=== PATIENT | male | born 1970 | race Caucasian/White ===

== ENCOUNTER 2022-03-20 10:34 | Outpatient (REF) | payer OTHER, SELFPAY ==
--- NOTE | ~2022-03-20 | FL_ITS ---
EXAMINATION: FL BARIUM SWALLOW CLINICAL INFORMATION: Dysphagia. COMPARISON: None. TECHNIQUE: Barium swallow examination is performed using fluoroscopic evaluation in addition to multiple fluoroscopic spot views. The patient is imaged both upright and prone and using both thick and thin sulfate along with effervescent granules. Barium tablet was also administered. Fluoroscopy time: 1 minute DAP: 12 Gy-cm2 Images: 37 FINDINGS: The swallowing mechanism is normal. No aspiration or penetration is seen. There is a small sliding-type hiatal hernia. There is gastroesophageal reflux. No mass or stricture is seen. FL/FL barium swallow IMPRESSION: Small sliding-type hiatal hernia and gastroesophageal reflux.
== END 2022-03-20 10:35 | disposition home or self-care (01) ==
LOC: HO.XRAY 10:34
PROVIDERS: PCP Internal Medicine; Visit Provider Otolaryngology
DX: Z13.89 Encounter for screening for other disorder (principal)
CPT/HCPCS: 74220

== ENCOUNTER 2022-03-27 08:15 | Outpatient (REF) | payer OTHER, SELFPAY ==
[2022-03-27 09:08] LABS: Hematocrit 44.3 % (42.0-52.0); Hemoglobin 15.8 g/dl (14.0-18.0); Mean Corpuscular HGB Conc 35.7 g/dl (31.0-36.0); Mean Corpuscular Hemoglobin 31.4 pg (27.0-33.0); Mean Corpuscular Volume 88.1 fL (80.0-98.0); Platelet Count 123 X10*3/uL (160-400); Red Blood Count 5.03 X10*6/uL (4.60-5.80); Red Cell Distribution Width 13.4 % (11.0-16.0); White Blood Count 5.4 X10*3/uL (4.8-10.8)
[2022-03-27 09:29] LABS: Alanine Aminotransferase 29 U/L (0-40); Albumin Level 4.4 g/dL (3.5-5.0); Alkaline Phosphatase 51 U/L (39-117); Anion Gap 11 (12-20); Aspartate Amino Transferase 22 U/L (5-37); Bilirubin Total 1.1 mg/dL (0.0-1.0); Blood Urea Nitrogen 11 mg/dL (9-16); C Reactive Protein 0.14 mg/dL (< or = 0.50); Calcium 9.3 mg/dL (8.4-10.2); Carbon Dioxide 30 mmol/L (22-29); Chloride 103 mmol/L (96-108); Cholesterol 108 mg/dL; Estimated Glomerular Filt Rate > 60; Gamma Glutamyl Transpeptidase 23 U/L (11-51); Glucose Random 99 mg/dL (60-115); HDL Cholesterol 32 mg/dL; LDL Cholesterol Calculated 51 mg/dl; Sodium 140 mmol/L (135-145); Total Protein 6.6 g/dL (6.5-8.0); Triglycerides 129 mg/dL
[2022-03-27 09:51] LABS: Free T4 (Free Thyroxine) 0.89 ng/dL (0.71-1.85); Insulin 8 uU/mL (2-29); Vitamin D 25-OH Total 43.3 ng/mL (>30)
[2022-03-28 12:42] LABS: Calcium (PTHI) 9.4 mg/dL (8.6-10.3); PTHI 18 pg/mL (16-77)
[2022-03-29 08:51] LABS: DHEA Sulfate 46 mcg/dL (32-279); Lutenizing Hormone <0.2 mIU/mL (1.5-9.3); Triiodothyronine T3 Free 3.3 pg/mL (2.3-4.2)
[2022-03-29 10:06] LABS: Thyroglobulin Antibodies <1 IU/mL (< or = 1); Thyroid Peroxidase Antibodies <1 IU/mL (<9)
[2022-04-02 13:32] LABS: Triiodothyronine T3 Reverse 10 ng/dL (8-25)
[2022-04-02 19:06] LABS: Homocysteine 11.2 umol/L (<11.4)
[2022-04-04 00:02] LABS: Dihydrotestosterone 20 ng/dL (12-65)
[2022-04-06 02:31] LABS: Estradiol Free 0.57 pg/mL; Estradiol, Ultrasensitive 26 pg/mL (< OR = 29)
[2022-04-12 09:06] LABS: Testosterone, Total 263 ng/dL (250-1100)
== END 2022-03-27 08:16 | disposition home or self-care (01) ==
LOC: HO.LAB 08:15
PROVIDERS: PCP Internal Medicine; Visit Provider Internal Medicine
DX: E03.9 Hypothyroidism, unspecified (principal); E29.1 Testicular hypofunction; E11.9 Type 2 diabetes mellitus without complications; D64.9 Anemia, unspecified
CPT/HCPCS: 36415; 80053; 80061; 82306; 82627; 82642; 82670; 82681; 82977; 83001; 83002; 83090; 83525; 83970; 84402; 84403; 84439; 84443; 84481; 84482; 85027; 86140; 86376; 86800

== ENCOUNTER 2022-03-28 11:36 | Outpatient (REF) | payer OTHER, SELFPAY | END 2022-03-28 11:37 | disposition home or self-care (01) | LOC: HO.10HDL 11:36 | PROVIDERS: Visit Provider Otolaryngology | DX: J30.89 Other allergic rhinitis (principal) | CPT/HCPCS: 36415; 82785; 86003 ==

== ENCOUNTER 2025-05-09 15:36 | Outpatient (AMB) | payer OTHER, SELFPAY ==
--- OUTSIDE RECORDS SUMMARY | 2024-11-10 10:00 | XMS_ITS | Encounter Summary ---
Author Name [facility] [place] [facility] [place] Organization [facility] [place] Address [address] [place] [address] Support Name Relationship Address Phone MÓNICAMessiNIDIA NICHOLS Next of Kin [address] [place] [address] NIDIA ALONZO Emergency Contact [address] [place] [address] Selected Encounter This section includes the information on record at [place] for the Encounter. Date/Time Encounter Type Encounter Description Reason Provider Source Nov 10, 2024 02:00 PM OFFICE O/P EST HI 40 MIN PRIMARY CARE/MEDICINE ICD-10-CM K58.9 Irritable bowel syndrome, unspecified DEBORAH GARLAND Encounter Template Text not used by [place] Assessments - Encounter Diagnoses This section includes the primary and secondary diagnoses documented for the Encounter. Date/Time Primary/Secondary Diagnosis Diagnosis Name Provider Source Nov 10, 2024 03:07 PM PRIMARY Irritable bowel syndrome, unspecified DEBORAH GARLAND Nov 10, 2024 03:07 PM SECONDARY Contact with and exposure to other hazardous substances DEBORAH GARLAND Nov 10, 2024 03:07 PM SECONDARY Essential (primary) hypertension DEBORAH GARLAND Plan of Treatment: Future Appointments (+ 6 months) and Future Tests (+/- 45 days) The Plan of Treatment section includes future care activities for the patient from all [place] treatmentfacilities. This section includes future appointments and future orders which are active, pending or scheduled. Future Appointments This section includes appointments that were scheduled to occur 6 months from the date of the Encounter, up to a maximum of 20 appointments. The data comes from all [place] treatment facilities. Appointment Date/Time Appointment Type Appointme nt Facility Name May 10, 2025 03:00 PM AMBULATORY - MEDICINE [facility] Vital Signs: All taken on the encounter date This section contains inpatient and outpatient Vital Signs collected on the date of the Encounter. Date/Time Temperature Pulse Blood Pressure Respiratory Rate SP02 Pain Height Weight Body Mass Index Source Nov 10, 2024 02:16 PM 98 71 156/89 18 98 71 273 38 [facility] IE Social History: Smoking Status (Most current) and Tobacco Use (All prior to encounter date) This section includes the most current, and the historical, smoking and tobacco- related health factors from the [place] facility where the Encounter took place. Current Smoking Status This section includes the most current smoking, or tobacco-related health factor, from the [place] facility where the Encounter took place. Date/Time Current Smoking Status Comment Facil ity Nov 10, 2024 02:00 PM NC-TOBACCO NEVER USED CIGARETTES [facility] Tobacco Use History This section includes a history of the smoking, or tobacco-related health factors, that were collected on or before the date of the Encounter. The data comes from the [place] facility where the Encounter took place. Date/Time Smoking Status/Tobacco Use Comment F acility Nov 10, 2024 02:00 PM NC-TOBACCO NEVER USED OTHER TYPE [facility] Encounter Notes: All associated encounter notes This section contains the clinical notes associated to the Encounter. Date/Time Encounter Note(s) Provider Source Nov 10, 2024 02:17 PM PREVENTIVE MEDICIN E NURSING NOTE: LOCAL TITLE: CLINICAL REMINDERS/NURSING STANDARD TITLE: PREVENTIVE MEDICINE NURSING NOTE DATE OF NOTE: NOV 10, 2024@14:17 ENTRY DATE: NOV 10, 2024@14:18:03 AUTHOR: ARASELI GALLEGOS EXP COSIGNER: URGENCY: STATUS: COMPLETED CLINICAL REMINDERS/NURSING Has ADDENDA Advance Directive Screen MH AD: Patient does not have a completed advance directive on file at any facility, [place] or outside. S/he is not interested in completing one at this time. The patient received education about Advance Directives and written notification of his/her rights . BMI>30/>24.99 High Risk: Patient declines to discuss weight management. Patient declined weight discussion. Discussed revisiting at a future visit. Influenza Immunization: The patient has received the seasonal influenza vaccine for the current season at another location. Documented: INFLUENZA, UNSPECIFIED FORMULATION Historical Date Administered: Jun 28, 2024 Outside Location: Outside Healthcare Provider Information Source: FROM OTHER REGISTRY COVID-19 Immunization: Moderna Patient received a prior dose of the Moderna COVID-19 Vaccine. Documented: COVID-19 (MODERNA), MRNA, LNP-S, PF, 100 MCG/0.5ML DOSE OR 50 MCG/0.25ML DOSE Historical Date Administered: Sep 29, 2020 Series: Series 1 Outside Location: Outside Healthcare Provider Information Source: FROM OTHER REGISTRY Patient received a prior dose of the Moderna COVID-19 Vaccine. Documented: COVID-19 (MODERNA), MRNA, LNP-S, PF, 100 MCG/0.5ML DOSE OR 50 MCG/0.25ML DOSE Historical Date Administered: Oct 29, 2020 Series: Series 2 Outside Location: Outside Healthcare Provider Information Source: FROM OTHER REGISTRY HIV Screening: Patient has been offered HIV testing and has declined. I have explained that HIV testing is recommended for all adults, even if all risk factors are absent. The patient was educated on the risk of delayed screening. Hepatitis C Testing: Patient declines HCV lab test. Reason: I am here to establish Tdap Immunization: The patient may have been vaccinated in the past but written documentation of vaccination is not available today. Patient instructed to obtain a written record of the prior vaccine and bring it to the next appointment. Herpes Zoster (Shingles) Vaccine: Prior Herpes Zoster vaccination Herpes zoster (shingles) vaccine given previously - written records available Zoster Recombinant (Shingrix): Documented: ZOSTER RECOMBINANT Historical Date Administered: May 02, 2024 Series: Series 1 Outside Location: Outside Healthcare Provider Information Source: FROM OTHER REGISTRY Documented: ZOSTER RECOMBINANT Historical Date Administered: Jul 17, 2024 Series: Series 2 Outside Location: Outside Healthcare Provider Information Source: FROM OTHER REGISTRY Sexual Orientation: The patient thinks of their sexual orientation as: Straight or Heterosexual RHS Screen: RHS Screen Environmental Check Upon inquiry, the individual reports that the environment is safe to proceed. Informed Consent to Screen and Document The individual consents to proceed with screening. The individual consents to documentation of responses. PRIMARY SCREEN: In the past 12 months, how often did a current or former intimate partner (e.g., boyfriend, girlfriend, , , sexual partner): 1. Scream or curse at you Never 2. Insult or talk down to you Never 3. Threaten you with harm Never 4. Physically hurt you Never 5. Force or pressure you to have sexual contact against your will, or when you were unable to say no Never The HITS tool (items 1-4 above) is [place] copyright protected by Clint Loomis MD, and the user has full rights to use it throughout the [place] system. PRIMARY SCREEN RESULT: The Primary Screen is NEGATIVE. The individual answered never to all forms of IPV above (i.e., answered never to all 5 items) The individual accepts education and/or resources: No EDUCATION: Other: Tdap Immunization: Td/Tdap given previously - written records available The patient has previously received the Tetanus, Diphtheria, Pertussis vaccine (Tdap). Documented: TDAP Historical Date Administered: Jul 15, 2019 Outside Location: Outside Healthcare Provider Information Source: FROM OTHER REGISTRY Hepatitis B Serology/Immunization: The patient declines to have HBV serology done. Reason: Here to establish The patient declines to receive the recommended dose of Hepatitis B vaccine. Immunization: HEP B, UNSPECIFIED FORMULATION Refusal Reason: PATIENT DECISION Patient refuses all immunization(s) in the HepB group Date Documented: 11/10/24 14:25 /judy GALLEGOS LPN LICENSED PRACTICAL NURSE Signed: 11/10/2024 15:10 11/10/2024 ADDENDUM STATUS: COMPLETED HTN Assess for Elevated BP>=140/90: The patient declines the recommended changes in medications to improve blood pressure control. Comment: my [facility]ie pcp monitors me The patient was counseled on the importance of diet and weight loss/ control in the regulation of blood pressure. The patient was counseled to reduce their weight to within 10 percent of their ideal body weight. The possible improvement in blood pressure control with even 5 to 10 pounds of weight loss was reviewed. The contribution of dietary sodium to elevated blood pressure was reviewed. The patient was counseled to have a goal sodium intake of 1500mg per day, with no more than 2300mg per day. The patient was counseled that a diet low in dietary saturated and trans fats is beneficial in lowering blood pressure. Lipid Screening: Patient was educated about cardiac risk factors related to cholesterol control, which includes, all elements of the Lipid Panel including HDL, LDL and Triglycerides. The declined testing at this time. /judy GALLEGOS LPN LICENSED PRACTICAL NURSE Signed: 11/10/2024 15:12 ARASELI GALLEGOS [facility] Nov 10, 2024 02:09 PM PHYSICIAN BELLA Venegas NOTE: LOCAL TITLE: PA NOTE STANDARD TITLE: PHYSICIAN RESPIRATORY CARE FACULTY NOTE DATE OF NOTE: NOV 10, 2024@14:09 ENTRY DATE: NOV 10, 2024@14:09:06 AUTHOR: DEBORAH GARLAND EXP COSIGNER: URGENCY: STATUS: COMPLETED S - 54 y/o M Allergy: NKAM MEDS: see below CC: new pt initial eval HPI: see Problem List PMH: neg CAD/AMI +HTN neg PVD or PAD neg COPD neg Asthma neg Hepatic Disorders neg Renal Disorders neg CVA/TIA neg Seizures neg Chronic Coagulopathy neg PUD, UGI Bleed neg Anemia, Excess Bleeding, Easy Bruising neg Blood Transfusions neg DM neg Thyroid Disorders +BPH +Depression (on meds) any Signif Infectious Diseases? No like TB/HIV/HEP B or C +Musculo-Skel Complaints (LBP, Knees, Shldr's) Neg Fx's or Dislocations never CA of any kind PSH: see Problem list ROS: denies fever, night sweats denies unintended changes WT/appetite denies new fatigue denies new chest pain denies new dyspnea/SOB denies new mental staus changes (or TIA Sx) denies ABD pain denies N/V/D denies chronic or bloody diarrhea denies (chronic) constipation denies LUTS denies melena, hematochezia denies new skin lesions or rashes FH: neg CAD neg DM +CRC (mother) neg Prostate CA Mil Hx: [employer] - current; but plans to retire from [employer] in JUN 09 MOS - 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; [employer] ([employer]: [place]), [employer], [place], [place] in [place] WIA - never TBI - no [place]: [employer] SH: O - coop A&Ox3 NAD W-N/H/D VS: Stable HEENT: Eyes - PERRL, anicteric OU Ears - EAC clear AU TM clear AU Oropharynx - no petechiae, uvula midline NECK: no adeno no bruits PUL: Resp full, reg, unlabored; CTA B/L COR: RRR, no M ABD: no distention no bruits no tenderness no mass/megaly RECTAL: defer EXT: no LLE or calf tenderness INTEG: NL texture/turgor NAILS: no clubbing no spooning LABS: not done yet A/P - 1) Hypertension - on Zestril 2) C/V Stable - never AL 3) Neuro Stable - never CVA/TIA 4) Hypercholesterolemia - on Lipitor 5) Normoglycemic 6) Coagulopathy - No 7) BPH - on Flomax 8) PTSD/Depression - already has Private Psychologist - Gets Meds via Private Sector 9) Irriatble Bowel Syndrome - on Colestipol - still sees Private GI as of NOV 09 MEDS: Reconciled - has list RTC MAY 09 - sooner prn Homelessness/Food Insecurity Screen: In the past 2 months, have you been living in stable housing that you own, rent, or stay in as part of a household? Yes - Living in stable housing. Are you worried or concerned that in the next 2 months you may NOT have stable housing that you own, rent, or stay in as part of a household? No - Not worried about housing near future The reports the following: Within the past 12 months, you worried whether your food would run out before you got money to buy more. Never true Within the past 12 months, the food you bought just didn't last and you didn't have money to get more. Never true Depression Screening: positive MST Screening: Patient denies experiencing sexual trauma (MST). Preferred Language: What is your, or your caregiver's preferred language for healthcare? Preferred Language: Syriac Tobacco Use Screening: The patient has never smoked cigarettes. The patient has never used other types of tobacco. Alcohol Use Screen (AUDIT-C): Alcohol Screen: SCREEN FOR ALCOHOL (AUDIT-C) An alcohol screening test (AUDIT-C) was negative (score=0). 1. How often did you have a drink containing alcohol in the past year? Consider a drink to be a 12 ounce can or bottle of regular beer, 8 ounces of malt liquor, a 5 ounce glass of table wine, or a 1.5 ounce shot of liquor (like scotch, gin, or vodka). Never 2. How many drinks containing alcohol did you have on a typical day when you were drinking in the past year? Response not required due to responses to other questions. 3. How often did you have six or more drinks on one occasion in the past year? Response not required due to responses to other questions. 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 Printed information was offered and provided if desired. [place] related exposures: [place]/caregiver was made aware of educational resources that includes information on the Registry Program, presumptive conditions and how to file a claim. Printed information was offered and provided if desired. Other airborne hazards, including burn pits: /caregiver was made aware of educational resources and printed information was offered and provided if desired. /caregiver has health or medical concerns related to their concern of environmental exposure. Question: na Benefits/Claims Questions [place]/caregiver was informed of local point of contact. Contact information for local resources: Benefits/Claim for Disability Compensation Questions:National VBA [place] Healthcare Enrollment: [facility] Eligibility direct dialed at [phone] Registry: [facility] Health Coordinator ext [phone] The following connections were provided to the [place]/caregiver: Toxic Exposure Screening (MAO) navigator Avg Risk Colorectal Cancer Screen: AVERAGE RISK colorectal cancer screening is due based on information available to this clinical reminder Prior/outside colonoscopy results: polyps' a[wyatt momth Date: September, ? Exact date is unknown Average risk screening reminder set 1 year from NOV 10, 2024. Comment: end 2024 PTSD Screening: PC-PTSD-5 A PTSD screening test (PC-PTSD-5) was positive (score=5). IN THE PAST MONTH, have you ever had any experience that was so frightening, horrible or traumatic. For example: A serious accident or fire a physical or sexual assault or abuse An earthquake or flood A war Seeing someone be killed or seriously injured Having a loved one through homicide or suicide 1. Have you ever experienced this kind of event? YES 2. Had nightmares about the event(s) or thought about the event(s) when you did not want to? YES 3. Tried hard not to think about the event(s) or went out of your way to avoid situations that reminded you of the event(s)? YES 4. Been constantly on guard, watchful, or easily startled? YES 5. [place] numb or detached from people, activities, or your surroundings? YES 6. [place] guilty or unable to stop blaming yourself or others for the event(s) or any problems the event(s) may have caused? YES TBI Screening: The [place] was not deployed in support of post-05/26 operations. Screen for Embedded Fragments: SCREEN FOR EMBEDDED FRAGMENTS The patient reports no embedded fragments. Medication Reconciliation: Outpatient: Has the patient been taking medications as documented in the EMLR? YES: The patient has been taking medications as documented in the EMLR. Essential Medication List for Review used to complete this medication reconciliation. INCLUDED IN THIS LIST: Alphabetical list of active outpatient prescriptions dispensed from this VA (local) and dispensed from another VA or DoD facility (remote) as well as inpatient orders (local, pending and active), local clinic medications, locally documented non-VA medications, and local prescriptions that have or been discontinued in the past 90 days. - All changes in medications, including all non-VA/Herbal/OTC medications were entered into CPRS. Changes: nt - If there were any medications the patient should no longer take, they were discontinued. - The patient/caregiver was instructed to update this list, discard old lists, and take this list to the next appointment, whether with a VA or non-VA provider. Follow-Up Pos PTSD/Depression: I have reviewed the results of the Mental Health screens and have evaluated the patient. Based on the evaluation, the following disposition plan will be implemented: Patient to be evaluated by Mental Health Routine/Non-emergent Mental Health Evaluation needed. Comment: already ses somebody outside va - has meds /es/ DEBORAH GARLAND PA-C STAFF PHYSICIAN RESPIRATORY CARE FACULTY Signed: 11/10/2024 15:07 DEBORAH GARLAND
--- OUTSIDE RECORDS SUMMARY | 2024-11-11 06:22 | XMS_ITS | Encounter Summary ---
Author Name [facility] [place] Organization [place] Address [address] [place] [address] Support Name Relationship Address Phone NIDIA ALONZO Next of Kin [address] [place] [address] NIDIA ALONZO Emergency Contact [address] [place] [address] Selected Encounter This section includes the information on record at [place] for the Encounter. Date/Time Encounter Type Encounter Description Reason Provider Source Nov 11, 2024 10:22 AM CASE MANAGEMENT ADMIN PAT ACTIVTIES (MASNONCT) ICD-10-CM Z71.89 Other specified counseling SOURAV TUBBS [facility] Encounter Template Text not used by [place] Assessments - Encounter Diagnoses This section includes the primary and secondary diagnoses documented for the Encounter. Date/Time Primary/Secondary Diagnosis Diagnosis Name Provider Source Nov 11, 2024 10:34 AM PRIMARY Other specified counseling SOURAV TUBBS [facility] Plan of Treatment: Future Appointments (+ 6 months) and Future Tests (+/- 45 days) The Plan of Treatment section includes future care activities for the patient from all [place] treatmentfacilities. This section includes future appointments and future orders which are active, pending or scheduled. Future Appointments This section includes appointments that were scheduled to occur 6 months from the date of the Encounter, up to a maximum of 20 appointments. The data comes from all [place] treatment facilities. Appointment Date/Time Appointment Type Appointme nt Facility Name May 10, 2025 03:00 PM AMBULATORY - MEDICINE [facility] Encounter Notes: All associated encounter notes This section contains the clinical notes associated to the Encounter. Date/Time Encounter Note(s) Provider Source Nov 11, 2024 10:22 AM FLOOR LAYER HELPER NOTE: LOCAL TITLE: POST 911 CASE MANAGEMENT SCREENING STANDARD TITLE: FLOOR LAYER HELPER NOTE DATE OF NOTE: NOV 11, 2024@10:22 ENTRY DATE: NOV 11, 2024@10:23 AUTHOR: SOURAV TUBBS COSIGNER: AMINA KING URGENCY: STATUS: COMPLETED Post 05/26 Case Management Screen The [place] was contacted by telephone. demographic information has been verified as correct. Preferred Method(s) of Communication: Email Mail Telephone Text Medical and/or Mental Health Crisis: The is NOT currently experiencing a medical and/or mental health crisis. Emergency Room Visits/Hospital Admissions: The [place] has NOT had three or more emergency room visits or hospital admissions in the past six months. Chronic Health Conditions: The has NOT been diagnosed with any chronic health condition in the last 12 months. Concerns/Questions/Needs: The [place] has NO barriers to care concerns, questions or needs at this time. The [place] HAS concerns, questions or needs regarding benefits. COMPENSATION/[place] STATE BENFITS The HAS concerns, questions or needs regarding managing care. WHOLE HEALTH EDUCATION The [place] has NO social concerns, questions or needs at this time. Case Management Screen Outcome: The HAS identified needs as described above. The Veterans identified needs WERE resolved during this encounter. Time spent with patient: 31-45 minutes WHOLE HEALTH WHOLE HEALTH EDUCATION Whole Health Education was provided. Called as part of the TCM screening measure. A comprehensive chart review was conducted prior to this call. 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 just started utilizing the [facility] and has no complaints at this time. [place] denies needing or wanting MH services during our conversation when offered. [place] denied having a medical or mental health crisis during our conversation when asked. We discussed the three different components that make up the VA and spoke about VA disability claims. We discussed [place] state benefits that he is eligible for and I explained the function and the dynamics of the [facility] team and also educated him on the whole health initiative. I also sent him an email with my contact information on it and the welcome home letter with the teams information on it for any future questions or concerns. /jun/ SOURAV TUBBS Transitional Patient Advocate Signed: 11/11/2024 10:36 /es/ LOLA Whitney LICENSED CLINICAL ESL PROFESSOR Cosigned: 11/11/2024 10:51 SOURAV TUBBS [place] [facility]
--- OUTSIDE RECORDS SUMMARY | 2025-05-04 11:00 | XMS_ITS | Encounter Summary ---
Author Organization [facility] Address [address] [place] [phone] Phone Care Team Providers Care Medical Claims Manager Name Role Phone Pranay Grigsby MD Primary Care Provider [phone]- [phone] Reason for Visit * Reason Comments Post-op Shoulder Pain Right Encounter Details Date Type Department Care Team (Late st Contact Info) Description 05/04/2025 11:00 AM EDT Office [place] [facility] [place] of Orthopaedic Surgery [address] [address] Angel Alberts MD [address] [place] [id number] [email or web address] S/P rotator cuff repair (Primary Dx); Traumatic complete tear of right rotator cuff, subsequent encounter Social History Tobacco Use Types Packs/Day Years Used Date Smoking Tobacco: Never Smokeless Tobacco: Never Tobacco Cessation:Counseling Given: Not Answered Alcohol Use Standard Drinks/Week Comments Not Asked 0 (1 standard drink = 0.6 oz pur e alcohol) once a month Education Answer Date Recorded Are you interested in more education? Not on nicanor e 01/10/2023 Are you concerned about learning? Not on file 01/10/2023 No 01/10/2023 No 01/10/2023 Digital Access Answer Date Recorded No 02/08/2023 No 02/08/2023 Reliable internet access at home? Not on file 02/08/2023 Device with a working camera? Not on file Intimate Partner Violence Answer Date R ecorded Are you denied basic needs s uch as food, clothing, or medical care? No 04/26/2025 In the past 12 months have y ou been in a relationship with a person who hurts, threatens, or tries to control you? No 04/26/2025 Are you denied basic needs s uch as food, clothing, or medical care? No 04/26/2025 In the past 12 months have y ou been in a relationship with a person who hurts, threatens, or tries to control you? No 04/26/2025 Sex and Gender Information Value Date Recorded Sex Assigned at Male 06/02/2020 9:58 AM EDT Legal Sex Male 10:32 AM EDT Gender Identity Male 06/02/2020 9:58 AM EDT Sexual Orientation Straight 06/02/2020 9: 58 AM EDT documented as of this encounter Last Filed Vital Signs Vital Sign Reading Time Taken Comments Blood Pressure - - Pulse - - Temperature - - Respiratory Rate - - Oxygen Saturation - - Inhaled Oxygen Concentration - - Weight 117.9 kg (260 lb) 05/04/2025 10:57 AM EDT Height 180.3 cm (5' 11 ) 05/04/2025 10:57 AM EDT Body Mass Index 36.26 05/04/2025 10:57 AM EDT documented in this encounter Progress Notes * Angel Alberts MD - 05/04/2025 11:00 AM EDT Images from the original note were not included. Patient Id: Azeem Crump is a 54 y.o. male [id number] Encounter Date: 05/04/2025 No chief complaint on file. 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 Patient is now 8 days postop. Patient reports that his pain is under control at this time. Taking his aspirin with no Pain or shortness of breath as well as Tylenol. Patient does report having some numbness in his hand and really in the 3 ulnar digits. 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 Patient was seen by George Fox (TIFFANIE) on 11-26-2024. At that time he had been doing physical therapy. Operative versus nonoperative treatment was discussed at that time patient chose continued physical therapy to achieve full range of motion. Patient reports that this was having him have 7 out of 7 nights awakening now 0 out of 7 nights awakening. Patient at this time really has poor range of motion and significant weakness and pain. Physical Exam: The patient's affect is pleasant and cooperative, the skin is in good condition, Cranial Nerves II-XII are grossly intact, normal respiratory rate, normal recipricol gait, general appearance is excellent. C-spine range of motion is within normal limits, with a negative Sperlings Test. 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 Plan: Patient will continue being in the sling at all times even at night. Is allowed to use his hand hiswrist and his elbow. If he starts having some numbness and tingling in these 3 digits he will come out of the sling and extend his elbow so the elbow is not flexes much. 2. Patient will start physical therapy which has already been ordered which will be passive external rotation 0 to 30 degrees, passive forward elevation 0 to 90 degrees, passive abduction 0 to 90 degrees. No strengthening no internal rotation 3. Follow-up with [facility] in 5 weeks for reevaluation. At that time the bump will come out and he will start active assisted range of motion all planes. We are going very slow because it was a massive tear. 4. Patient continue aspirin and Tylenol. The aspirin is really to prevent fatal pulmonary embolism.He will take this until 30 days postop then can stop Patient Education: The patient and I reviewed the diagnosis, differential diagnosis, and options for further diagnosisand treatment. We discussed alternatives of treatment, advantages and disadvantages of different treatment methods, and relative risks and benefits. I have specifically asked the patient if they have any further questions or concerns to be addressed during today's visit - all concerns have been satisfactorily addressed. The patient was encouragedto call the office with any questions or concerns. If the patient's condition worsens or does not improve as expected, then the patient was instructed to contact our office promptly. The patient demonstrated understanding and was appreciative. The patient???s agenda was elicited and addressed during the visit. All questions were satisfactorily answered and he was in agreement with this plan. Review of systems reviewed as documented in patient's chart. No Known Allergies Past Medical History: Diagnosis Date Gastroesophageal reflux disease Hyperlipidemia Hypertensive disorder Irritable bowel syndrome Sleep apnea cpap Past Surgical History: Procedure Laterality Date KNEE SURGERY Right NASAL RECONSTRUCTION RIGHT ARTHROSCOPIC REPAIR ROTATOR CUFF SHOULDER, augmented with autologous bursa Right 04/26/2025 Performed by Angel Alberts MD at [facility] OR RIGHT DECOMPRESSION SUBACROMIAL SHOULDER Right 04/26/2025 Performed by Angel Alberts MD at [facility] OR No family history on file. Social History Occupational History Not on file Tobacco Use Smoking status: Never Smokeless tobacco: Never Vaping Use Vaping status: never used Substance and Sexual Activity Alcohol use: Not on file Comment: once a month Drug use: Not on file Sexual activity: Not on file Angel Alberts MD documented in this encounter Plan of Treatment Upcoming Encounters Date Type Department Care Team (Late st Contact Info) Description 06/02/2025 9:45 AM EDT Office Visit [facility] [place] of Orthopaedic Surgery - [facility] [address] [place] [address] Angel Alberts MD [address] [place] [phone] [email or web address] documented as of this encounter Visit Diagnoses Diagnosis S/P rotator cuff repair- Primary Traumatic complete tear of right rotator cuff, subsequent encounter documented in this encounter Care Teams Medical Claims Manager Relationship Specialty Start Date End Date Pranay Grigsby MD [facility] [place] [address] PCP - General Internal Medicine 11/17/24 documented as of this encounter Additional Source Comments The information contained in this document represents components of the legal health record. It is not the complete legal health record.[facility]
--- OUTSIDE RECORDS SUMMARY | 2025-05-09 17:37 | XMS_ITS | Encounter Summary ---
Author Organization [facility] Address [address] [place] [address] [place] [phone] Phone Care Team Providers Care Drier And Grinder Tender Name Role Phone Jose David Schwarz MD Primary Care Provider + Pranay Grigsby MD Primary Care Provider [phone]- [phone] Encounter Details Date Type Department Care Team (Late st Contact Info) Description 07/16/2019 Procedure Pass [facility] General Imaging [address] [place] [address] Social History Tobacco Use Types Packs/Day Years Used Date Smoking Tobacco: Never Assessed Sex and Gender Information Value Date Recorded Sex Assigned at Male 06/02/2020 9:58 AM EDT Legal Sex Male 10:32 AM EDT Gender Identity Male 06/02/2020 9:58 AM EDT Sexual Orientation Straight 06/02/2020 9: 58 AM EDT documented as of this encounter Plan of Treatment Upcoming Encounters Date Type Department Care Team (Late st Contact Info) Description 06/02/2025 9:45 AM EDT Office Visit [facility] Department of Orthopaedic Surgery - [address] [address] Angel Alberts MD [address] [place] [phone] [email or web address] documented as of this encounter Visit Diagnoses Not on filedocumented in this encounter Care Teams Drier And Grinder Tender Relationship Specialty Start Date End Date Jose David Schwarz MD [address] [place] [phone] PCP - General Internal Medicine 07/16/19 11/16/24 Pranay Grigsby MD [address] [place] [id number] PCP - General Internal Medicine 11/17/24 documented as of this encounter Additional Source Comments The information contained in this document represents components of the legal health record. It is not the complete legal health record.[facility]
--- OUTSIDE RECORDS SUMMARY | 2025-05-09 17:37 | XMS_ITS | Encounter Summary ---
Author Organization [facility] Address [address] [place] [address] [place] [address] Phone Care Team Providers Care Finance And Administration Manager Name Role Phone Jose David Schwarz MD Primary Care Provider + Pranay Grigsby MD Primary Care Provider [phone]- [phone] Encounter Details Date Type Department Care Team (Late st Contact Info) Description 07/16/2019 Procedure Pass [facility] General Imaging [address] [place] [address] Social History Tobacco Use Types Packs/Day Years [...] Description 06/02/2025 9:45 AM EDT Office [place] [facility] [place]edic Surgery - [address] [address] Angel Alberts MD [address] [place] [phone] [email or web address] documented as of this encounter Visit Diagnoses Not on filedocumented in this encounter Care Teams Finance And Administration Manager Relationship Specialty Start Date End Date Jose David Schwarz MD [address] [place] [phone] PCP - General Internal Medicine 07/16/19 11/16/24 Pranay Grigsby MD [address] [place] [phone] PCP - General Internal Medicine 11/17/24 documented as of this encounter Additional Source Comments The information contained in this document represents components of the legal health record. It is not the complete legal health record.[facility]
--- OUTSIDE RECORDS SUMMARY | 2025-05-09 17:37 | XMS_ITS | Continuity of Care Document ---
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 CONFIRMATIO N TO FOLLOW: Possible presence of HIV-1antibo dies, HIV-2 antibodies and/or HIV-1 p24 antigen. Specimen will reflex to the confirmatio n testing that fulfills the Center for Disease Control and Prevention' s HIV diagnostic algorithm. Refer to [facility] Lab Guide for additional information : [email or web address] x Testing performed by Tim null [facility] Miscellan eous Sendouts Repository Sample Received (11/29/23 11:17 AM) 11/28 N [facility] Vital Signs Combined list of inpatient and outpatient Vital Signs from Department of Defense and Veterans Affairs, ranging from 12 months to all on record, depending upon the facility. Vital Sign Value Date Comments Source SYSTOLIC BLOOD PRESSURE 156 11/10/2024 14:16:05 [place] DIASTOLIC BLOOD PRESSURE 89 11/10/2024 14:16:05 [place] PULSE OXIMETRY 98 11/10/2024 14:16:05 [place] WEIGHT 273 11/10/2024 14:16:05 [place] BMI 38 kg/m2 11/10/2024 14:16:05 [place] HEIGHT 71 11/10/2024 14:16:05 [place] TEMPERATURE 98 11/10/2024 14:16:05 [place] PULSE 71 11/10/2024 14:16:05 [place] RESPIRATION 18 11/10/2024 14:16:05 [place] Encounters Combined list of: 1) Encounters from Department of Veterans Affairs facilities going backup to the last 18 months, not all VA inpatient encounters are included; 2) Encounters from the Department of Defense facilities going backup to 280 months. Location Location Details Encounter Type Encounter Number Reason For Visit Attending Provider ADM Date DC Date Status Disposition Source [facility] [place] [place] [address](AFN G 104 Med Sq-FM) OUTPATIENT [id number] Notes Entered by: PATSY BAIG 02 Apr 2017 1633 ------- ------- ------- ------- -- PATSY FOFANA 04/02 Released w/o Limitations [facility] [place] [address](A FNG 104 Med Sq-FM) [place] [address](AFN G 104 Med Sq-FM) OUTPATIENT [id number] Notes Entered by: SCOTT HARKINS 04 May 2018 1416 ------- ------- ------- ------- -- MARCIE GRIGBSY 05/04 Released w/o Limitations [facility] [place] [address](A FNG 104 Med Sq-FM) [facility] OUTPATIENT [id number] Theater Provider 10/03 [facility]ased w[facility] Limitations [facility] OUT[facility] [id number] Theater Provider 10/29 [facility]ased w/[facility] Limitations [facility] OUTPATIENT [id number] Theater Provider 11/06 Released w/[facility] Limitations [facility] OUTPATIENT [id number] Theater Provider 11/16 Released w/o Limitations [facility] OUTPATIENT [id number] Theater Provider 12/05 [facility] OUTPATIENT [id number] Theater Provider 12/14 Released w/o Limitations [facility] [place] [facility] [address](AFN G 104 Med Sq-FM) OUTPATIENT [id number] Notes Entered by: JONAS BERRIOS 22 Dec 2018 1240 ------- ------- ------- ------- -- Pre-Dep loymPATSY Renteria 12/22 [facility] Limitations [facility] [place] [place] [address](A FNG 104 Med Sq-FM) [facility] OUTPATIENT [id number] Theater Provider 12/23 Released w/o Limitations [facility] OUTPATIENT [id number] Theater Provider 03/12 Released w/o Limitations [facility] OUTPATIENT [id number] Theater Provider 03/16 Released w/o Limitations [facility] [place] [address](AFN G 104 Med Sq-FM) OUTPATIENT [id number] Notes Entered by: PATSY BAIG 01 Apr 2019 1355 ------- ------- ------- ------- -- PATSY FOFANA 04/01 Released w/o Limitations [facility] [place] [address](A FNG 104 Med Sq-FM) [facility] [place] [address](AFN G 104 Med Sq-FM) OUTPATIENT [id number] Notes Entered by: PATSY BAIG 25 Sep 2019 1059 ------- ------- ------- ------- -- PATSY Lemons 09/25 Released with Work/Duty Limitations [facility] [place] [place] [address](A FNG 104 Med Sq-FM) [facility] [place] [address](AFN G 104 Med Sq-FM) OUTPATIENT [id number] Notes Entered by: PATSY BAIG 28 Sep 2019 0947 ------- ------- ------- ------- -- PATSY FOFANA 09/28 Released w/o Limitations [facility] [place] [address](A FNG 104 Med Sq-FM) [facility] [place] [address](AFN G 104 Med Sq-FM) [facility] CONSULT [id number] Notes Entered by: PATSY BAIG 11 Mar 2020 1049 ------- ------- ------- ------- -- PATSY Lemons 03/11 [facility] [place] [address](A FNG 104 Med Sq-FM) [facility], [facility](AFN G 104 Med Sq-FM) OUTPATIENT [id number] Notes Entered by: PATSY BAIG 31 Mar 2020 1410 ------- ------- ------- ------- -- follow up PATSY BAIG 03/31 Released w/o Limitations [facility] [place] [address](A FNG 104 Med Sq-FM) [facility] [place] [address](AFN G 104 Med Sq-FM) OUTPATIENT [id number] Notes Entered by: PATSY BAIG 11 Apr 2020 1634 ------- ------- ------- ------- -- HA4 PATSY BAIG 04/11 [facility] Limitations [facility] [place] [place] [address](A FNG 104 Med Sq-FM) [facility], [facility](AFN G 104 Med Sq-FM) OUTPATIENT [id number] Notes Entered by: PATSY BAIG 15 Nov 2020 1533 ------- ------- ------- ------- -- PATSY FOFANA NOONE 11/15 Released w/o Limitations [facility] [place] [address](A FNG 104 Med Sq-FM) [facility] [place] [address](AFN G 104 Med Sq-FM) OUTPATIENT [id number] Notes Entered by: PATSY BAIG 03 Apr 2022 1227 ------- ------- ------- ------- -- Med review SAFIA PATSY OTOOLE 04/03 Released w/o Limitations [facility] [place] [address](A FNG 104 Med Sq-FM) [facility] [place] [address](AFN G 104 Med Sq-FM) OUTPATIENT [id number] Notes Entered by: PATSY BAIG 03 Apr 2022 1257 ------- ------- ------- ------- -- PATSY FOFANA 04/03 Released w/o Limitations [facility] [place] [address](A FNG 104 Med Sq-FM) [facility] Outpatient Encounter [id number] 05/02 [facility]counter [id number] 06/28 [facility] Outpatient Encounter [id number] 07/17 [facility] Outpatient Encounter [id number] 08/02 [facility] Out[facility]counter [id number] 09/20 [facility] Encounter [id number]/[id number] [facility] [id number] Diagnos is: ICD-10- CM 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 Marsh 09/21 [facility] Out[facility] Encounter [id number] 09/30 [facility] Encounter [id number] 10/13 [facility] En[facility] [id number] 10/13 [facility] [id number] MDG Care Not Rendered [id number] 10/20 Discharge Disposition: Home or Self Care 8203R-1 04 MDG [facility] Out[facility] Encounter [id number] 11/10 [facility] O/P EST HI 40 MIN [id number] Diagnos is: ICD-10- CM K58.9 Irritab le bowel syndrom e, unspeci fied CR [place] 11/10 [place] [facility] [id number] Diagnos is: ICD-10- CM 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 Marsh 11/11 [facility] [id number] MDG Care Not Rendered [id number] 11/13 Discharge Disposition: Home or Self Care 8203R-1 04 MDG [id number]-104 MDG Care Not Rendered [id number] 11/30 Discharge Disposition: Home or Self Care 8203R-1 04 MDG [id number]-104 MDG Care Not Rendered [id number] 01/28 Discharge Disposition: Home or Self Care 8203R-1 04 MDG 8203R-104 MDG Care Not Rendered [id number] 02/01 Discharge Disposition: Home or Self Care 8203R-1 04 MDG Procedures Combined list of: 1) Procedures from Department of Veterans Affairs facilities going back up to thelast 18 months, not all [place] non-surgical procedures are included; 2) All procedures from the [facility] of [facility] facilities. Procedure Procedure Type Code Date Perfomer Comments Sourc e INJECTION, PROMETHAZINE HCL, UP TO 50 MG 08/06/2005 [facility] No data available for this section Ambulato ry Pharmacy Social History Combined list of available smoking, tobacco, and other social history from [facility] of Defense and [facility] facilities. Social History Type Response Date Comment Sourc e Tobacco smoking status NHIS MS-TOBACCO NEVER USED CIGARETTES 11/10/2024 [place] History of tobacco use MS-TOBACCO NEVER USED OTHER TYPE 11/10/2024 [place] This section is an empty social history section. [facility] Assessment and Plan Combined list of future care activities from Department of Defense and Veterans Affairs facilities (e.g., assessment and plan notes, appointments, orders, and referrals). Additional future care activities may be listed in the Plan of Care section. Result Assessment and Plan Date Source Assessment and Plan No data available for this section 05/09/2025 [facility] Plan of Care List of future care activities from Department of Veterans Affairs facilities. Additional future care activities may be listed in the Assessment and Plan section. Date/Time Care Activity Care Activity Detail Facili ty 05/10/2025 AMBULATORY - MEDICINE AMBULATORY - MEDICI [facility] Functional Status Combined list of recent functional and cognitive assessments recorded at Department of Defense and Veterans Affairs (VA).VA Functional Mower Measurement (FIM) Scale: 1 = Total Assistance (Subject = 0% +), 2 = Maximal Assistance (Subject = 25% +), 3 = Moderate Assistance (Subject = 50% +), 4 = Minimal Assistance (Subject = 75% +), 5 = Supervision, 6 = Modified Mower (Device), 7 = Complete Mower (Timely, Safely). Assessment Date/Time Source Assessment Type Assessment Skill Assessment Score Assessment Details No data available for this section
--- OUTSIDE RECORDS SUMMARY | 2025-05-09 17:37 | XMS_ITS | Encounter Summary ---
Author Organization [facility] Address [address] [place] [address] [place] [phone] Phone Care Team Providers Care Wood Caulker Name Role Phone Jose David Schwarz MD Primary Care Provider + Pranay Grigsby MD Primary Care Provider [phone]- [phone] Encounter Details Date Type Department Care Team (Late st Contact Info) Description 07/16/2019 Procedure Pass [facility] [address] [place] [address] Social History Tobacco Use Types Packs/Day Years [...] Description 06/02/2025 9:45 AM EDT Office Visit [facility] Department of Orthopaedic Surgery - [address] [address] Angel Alberts MD [address] [place] [id number] [email or web address] documented as of this encounter Visit Diagnoses Not on filedocumented in this encounter Care Teams Wood Caulker Relationship Specialty Start Date End Date Jose David Schwarz MD [address] [place] [address] PCP - General Internal Medicine 07/16/19 11/16/24 Pranay Grigsby MD [address] [place] [address] PCP - General Internal Medicine 11/17/24 documented as of this encounter Additional Source Comments The information contained in this document represents components of the legal health record. It is not the complete legal health record.[facility]
--- OUTSIDE RECORDS SUMMARY | 2025-05-09 17:37 | XMS_ITS | Encounter Summary ---
Author Organization [facility] Address [address] [facility] [address] [place] [phone] Phone Care Team Providers Care Nutrition Technician Name Role Phone Pranay Grigsby MD Primary Care Provider [phone]- [phone] Encounter Details Date Type Department Care Team (Late st Contact Info) Description 04/26/2025 Procedure Pass [facility] [place] [place] [facility] [address] [place] [address] Social History Tobacco Use Types Packs/Day Years Used Date Smoking Tobacco: Never Smokeless Tobacco: Never Alcohol Use Standard Drinks/Week Comments Not Asked [...] Description 06/02/2025 9:45 AM EDT Office Visit [facility] [place] [place] Department of Orthopaedic Surgery [address] [address] Angel Alberts MD [address] [place] [id number] [email or web address] documented as of this encounter Visit Diagnoses Not on filedocumented in this encounter Care Teams Nutrition Technician Relationship Specialty Start Date End Date Pranay Grigsby MD [address] [place] [address] PCP - General Internal Medicine 11/17/24 documented as of this encounter Additional Source Comments The information contained in this document represents components of the legal health record. It is not the complete legal health record.[facility]
--- OUTSIDE RECORDS SUMMARY | 2025-05-09 17:37 | XMS_ITS | Clinical Summary ---
Author Organization [facility] Address [address] [place] [phone] Phone Care Team Providers Care Physical Sciences Instructor Name Role Phone Pranay Grigsby MD Primary Care Provider [phone] Allergies No known active allergies Medications sertraline (ZOLOFT) 25 MG tablet Take 25 mg by mouth daily. Active tamsulosin (FLOMAX) 0.4 mg Cap Take 0.4 mg by mouth daily. Active atorvastatin (LIPITOR) 10 MG tablet Take 1 tablet by mouth daily. 08/02/20 24 Active lisinopril (PRINIVIL,ZEST RIL) 20 MG tablet Take 1 tablet by mouth daily. 08/17/20 23 Active zolpidem (AMBIEN) 5 MG tablet Take 5 mg by mouth. 11/02/19 25 Active LORazepam (ATIVAN) 0.5 MG tablet Take 1 tablet by mouth 3 (three) times a day as needed. 07/09/20 23 Active colestipol (COLESTID) 1 gram tablet TAKE 2 TABLETS BY MOUTH 2 TIMES DAILY (WITH MEALS) FOR 360 DAYS. 08/26/20 24 Active cyclobenzaprin e (FLEXERIL) 5 MG tablet Take 1 tablet by mouth 3 (three) times a day as needed. Active DULoxetine (CYMBALTA) 30 MG capsule Take 1 capsule by mouth daily. 11/10/19 25 Active gabapentin (NEURONTIN) 300 MG capsule Take 300 mg by mouth. 11/01/19 25 Active metoprolol succinate (TOPROL-XL) 25 MG 24 hr tablet Take 25 mg by mouth daily. Active aspirin 325 MG tablet Take 1 tablet (325 mg total) by mouth 2 (two) times a day. 60 tablet 04/26/20 25 Active oxyCODONE 5 MG immediate release tablet Take 1 tablet (5 mg total) by mouth every 4 (four) hours as needed for pain (specific location in comments). Partial fill ok 12 tablet 04/26/20 25 Active acetaminophen (TYLENOL) 500 mg capsule Take 2 capsules (1,000 mg total) by mouth every 6 (six) hours as needed for fever. 60 capsule 04/26/20 25 Active ibuprofen (ADVIL,MOTRIN) 200 MG tablet Take 200 mg by mouth every 6 (six) hours as needed for pain (specific location in comments). 025 Discontinued(St op Taking at Discharge) acetaminophen (TYLENOL) 500 MG tablet Take 1 tablet (500 mg total) by mouth every 6 (six) hours as needed for pain (specific location in comments). 60 tablet 04/26/20 25 025 Discontinued oxyCODONE 5 MG immediate release tablet Take 1-2 tablets (5-10 mg total) by mouth every 4 (four) hours as needed for pain (specific location in comments). Partial fill ok 12 tablet 04/26/20 25 025 Discontinued aspirin 325 MG EC tablet Take 1 tablet (325 mg total) by mouth 2 (two) times a day. 60 tablet 04/26/20 25 025 Discontinued Active Problems Problem Noted Date Diagnosed Date Primary hypertension 04/18/2025 Sleep apnea 04/18/2025 Encounters Date Type Department Care Team Description 05/04/2025 11:00 AM EDT Office Visit [facility] Department of Orthopaedic Surgery - [address] [address] Angel Alberts MD S/P rotator cuff repair (Primary Dx); Traumatic complete tear of right rotator cuff, subsequent encounter 04/26/2025 7:30 AM EDT - 04/26/2025 10:00 AM EDT Surgery [facility] [address] [place] [address] Angel Alberts MD RIGHT ARTHROSCOPIC REPAIR ROTATOR CUFF SHOULDER, augmented with autologous bursa 04/26/2025 7:18 AM EDT Anesthesia Event [facility] [address] [place] [address] Angela Guadalupe MD Oneto, Agustin Julian, MD 04/26/2025 6:40 AM EDT Ancillary Procedure [facility] Imaging Bedside Ultrasound VRT [address] [place] [address] Angela Guadalupe MD 04/26/2025 5:44 AM EDT - 04/26/2025 11:59 AM EDT Hospital Encounter [facility] [address] [place] [address] Angel Alberts MD Discharge Disposition: Home or Self Care 04/26/2025 Orders Only [facility]OPEDICS VIRTUAL DEPARTMENT [address] [place] [address] Myra Larios MD 04/26/2025 Procedure Pass [facility] [address] [place] [address] 04/25/2025 1:00 PM EDT Pre-Admission Testing [facility] Pre-Procedure Evaluation Department [place] [address] Angel Alberts MD 04/25/2025 10:00 AM EDT Ancillary Procedure [facility] Imaging Bedside Ultrasound VRT [address] [place] [address] Angel Alberts MD Acute pain of right shoulder 04/25/2025 Orders Only [facility] Department of Orthopaedic Surgery, Sports Medicine Service [address] [facility], [address] [place] [address] Angel Alberts MD Acute pain of right shoulder (Primary Dx) 04/07/2025 10:45 AM EDT Office Visit [facility] Department of Orthopaedic Surgery [address] [address] Angel Alberts MD Acute pain of right shoulder (Primary Dx); Tendinitis of right rotator cuff; Traumatic complete tear of right rotator cuff, subsequent encounter from Last 3 Months Social History Tobacco Use Types Packs/Day Years [...] Orientation Straight 06/02/2020 9: 58 AM EDT Last Filed Vital Signs Vital Sign Reading Time Taken Comments Blood Pressure 110/69 04/26/2025 10:53 AM EDT Pulse 52 04/26/2025 10:53 AM EDT Temperature 36.3 C (97.3 F) 04/26/2025 10:08 AM EDT Respiratory Rate 27 04/26/2025 10:53 AM EDT Oxygen Saturation 96% 04/26/2025 10:53 AM EDT Inhaled Oxygen Concentration - - Weight 117.9 kg (260 lb) 05/04/2025 10:57 AM EDT Height 180.3 cm (5' 11 ) 05/04/2025 10:57 AM EDT Body Mass Index 36.26 05/04/2025 10:57 AM EDT Plan of Treatment Upcoming Encounters Date Type Department Care Team (Late Contact Info) Description 06/02/2025 9:45 AM EDT Office Visit [facility] Department of Orthopaedic Surgery - [address] [place] [address] Angel Alberts MD [address] [place] [address] [email or web address] Health Maintenance Due Date Last Done Comments BLOOD PRESSURE 1968 CREATININE LEVEL 1968 LIPID PANEL 1968 POTASSIUM LEVEL 1968 DEPRESSION SCREENING 1980 HEPATITIS C SCREENING 1986 HIV ONE-TIME SCREENING (18-6 5 YEARS) 1986 SCREENING FOR DIABETES 2003 COLOGUARD 2013 COLONOSCOPY 2013 COLORECTAL CANCER SCREENING 2013 FIT TEST 2013 FOBT 2013 SIGMOIDOSCOPY 2013 VIRTUAL COLONOSCOPY 2013 PNEUMOCOCCAL VACCINES (50+ years) (1 of 1 - PCV) 2018 COVID-19 VACCINE (2 - 2023-2 5 season) 2024 10/29/2020 Adult Td,Tdap Booster 07/15/2029 07/15/2019 ZOSTER VACCINES Completed 07/17/2024, 05/02/2024 SMOKING STATUS SCREENING (On ce After 26 Yrs) Completed 05/04/2025 HEPATITIS A VACCINES Aged Out No long er eligible based on patient's age to complete this topic HIB VACCINES Aged Out No longer eligi ble based on patient's age to complete this topic MENINGOCOCCAL VACCINES (ACWY) Aged Out No longer eligible based on patient's age to complete this topic MENINGOCOCCAL VACCINES (B) Aged Out N o longer eligible based on patient's age to complete this topic Medical Devices Implanted Type Area Bucket Pusher Device Identifier Shelf Expiration Date Model / Serial / Lot [place] Soft Sp 2.6 Fibertak Triple Loaded W/1.3mm Suture Tape Wht/Aftab Blk/Wht Self-Punching Bx/5ea - [id number] Implanted:Qty: 1 on 04/26/2025 by Angel Alberts MD at [facility] Right: Shoulder [employer] [id number] 01/12/2029 AR-3633SP / / [id number] [place] Soft Sp 2.6 Fibertak Triple Loaded W/1.3mm Suture Tape Wht/Aftab Blk/Wht Self-Punching Bx/5ea - [id number] Implanted:Qty: 1 on 04/26/2025 by Angel Alberts MD at [facility] Right: Shoulder [employer] [id number] 01/12/2029 AR-3633SP / / [id number] [place] Soft Sp 2.6 Fibertak Triple Loaded W/1.3mm Suture Tape Wht/Aftab Blk/Wht Self-Punching Bx/5ea - [id number] Implanted:Qty: 1 on 04/26/2025 by Angel Alberts MD at [facility] Right: Shoulder [employer] [id number] 01/12/2029 AR-3633SP / / [id number] [place] Swivelock 4.30zup78.5mm W/1.3mm Suture Tape White/Blue Self Punching Bc Bx/5ea - [id number] Implanted:Qty: 1 on 04/26/2025 by Angel Alberts MD at [facility] Right: Shoulder [employer] [id number] 01/12/2029 AR-2324KB CSP / / [id number] [place] Swivelock 4.65zhe40.5mm W/1.3mm Suture Tape White/Blue Self Punching Bc Bx/5ea - [id number] Implanted:Qty: 1 on 04/26/2025 by Angel Alberts MD at [facility] Right: Shoulder [employer] [id number] 12/13/2028 AR-2324KB CSP / / [id number] [place] Swivelock 4.87boq33.5mm W/1.3mm Suture Tape White/Blue Self Punching Bc Bx/5ea - [id number] Implanted:Qty: 1 on 04/26/2025 by Angel Alberts MD at [facility] Right: Shoulder [employer] [id number] 01/12/2029 AR-2324KB [facility] / / [id number] Procedures Procedure Name Priority Date/Time Associated Diagnosis Comments AIRWAY PLACEMENT Routine 04/26/2025 7:38 AM EDT DECOMPRESSION SUBACROMIAL SHOULDER 04/26/2025 7:26 AM EDT Tear of right rotator cuff, unspecified tear extent, unspecified whether traumatic Special Needs PAIN PUMP AK SHLDR ARTHROSCOP,SURG,W/RO TAT CUFF REPR 04/26/2025 7:26 AM EDT Tear of right rotator cuff, unspecified tear extent, unspecified whether traumatic Special Needs PAIN PUMP ANES PERIPHERAL BLOCK LDA Routine 04/26/2025 7:00 AM EDT AK ANESTHESIA PERIPHERAL BLOCK PLACEHOLDER Routine 04/26/2025 7:00 AM EDT ANESTHESIA POINT OF CARE IMAGE CAPTURE Routine 04/26/2025 6:35 AM EDT POINT OF CARE IMAGE CAPTURE Routine 04/25/2025 9:58 AM EDT Acute pain of right shoulder from Last 3 Months Results * ANES ETT DOUBLE LUMEN - AIRWAY LDA (04/26/2025 7:38 AM EDT) Narrative Godwin Rondon CRNA - 04/26/2025 7:38 AM EDT Godwin Rondon CRNA 04/26/2025 7:39 AM Airway Placement Procedure Note: Procedure performed by: anesthesiologist and fellow/resident/LEGAL COLLECTOR Anesthesiologist: Angela Guadalupe MD Fellow/Resident/LEGAL COLLECTOR: Godwin Rondon CRNA Airway procedure initiated at:04/26/2025 7:38 AM and ended at. Personal Protective Equipment: Mask: surgical mask Eye Protection: eye shield Gloves: gloves Gown: no gown Airway Placement: Technique: LMA LMA Insertion: LMA size: 5 LMA placement attempts: 1. Outcomes: Evidence of dental injury? no Complications observed? no us Angela Guadalupe MD AK ANESTHESIA Final Result * AK ANESTHESIA PERIPHERAL BLOCK PLACEHOLDER, GUERRERO PERIPHERAL BLOCK LDA (04/26/2025 7:00 AM EDT) Narrative Darwin Patton MD - 04/26/2025 7:00 AM EDT Darwin Patton MD 04/26/2025 7:24 AM Peripheral Block Placement Procedure Note: Start Time: 04/26/2025 7:00 AM Stop Time:04/26/2025 7:20 AM Reason for block: surgeon request and post op pain managment Block performed by: fellow/resident/LEGAL COLLECTOR and anesthesiologist Anesthesiologist: Angela Guadalupe MD Fellow/Resident/LEGAL COLLECTOR: Darwin Patton MD [place] Protocol Performed: consent obtained, patient identified with 2 identifiers, correct procedure verified, correct site and laterality confirmed, verified equipment, coagulation status reviewed and implant history reviewed. Procedure Details: ASA monitors applied during procedure and vitals signs recorded in nursing flowsheet during procedure. Block type: continuous Ultrasound device used: Probe [id number] Ambulatory local anesthetic pump: Yes Laterality: right Block location: upper extremity and interscalene brachial plexus Prep: chloraprep and sterile drape Image guidance: ultrasound guidance Ultrasound image: stored Needle visualization: good Nerve visualization: good Block Technique Block technique: nerve stimulator and ultrasound guided Nerve Stimulator 0.3 mA Motor response comment(s): No motor response noted Needle type: stimulating needle used Needle gauge: 18 Injection assessment:negative aspiration for heme, negative aspiration for CSF, no paresthesia on injection and incremental injection Paresthesia: none Needle length: 9cm Post Block Placement Assessment Complications Observed: No Notes Block Notes: VS recorded in EPIC. Block site marked; timeout performed verifying patient identification, location, laterality, and procedure. The patient's shoulder and neck skin were thoroughly cleaned with chlorhexidine prep and then draped in a sterile fashion. Lidocaine 1% local SC infiltration at site. Under ultrasonic guidance, trunks of the brachial plexus were identified. An 18G Tuohy needle was advanced through the middle scalene and prevetebral fascia, posterior to the upper trunk/C5-C6 nerve roots of the brachial plexus. Following confirmation of negative aspiration, local anesthetic solution was injected in aliquots of 1-2mL with excellent spread around nerve roots noted on ultrasound. A 20G catheter was then advanced through the Tuohy needle under direct ultrasound visualization. The Tuohy needle was then removed over the catheter. Final catheter position was then re-confirmed with ultrasound visualization and then carefully secured in place using steri-strips, liquid adhesive, and Tegaderm dressing. Sterile conditions were maintained throughout the procedure and dressing application. Vital signs were stable throughout the procedure and the patient tolerated it well. us Angela Guadalupe MD [place] ANESTHESIA Final Result * ANESTHESIA POINT OF CARE IMAGE CAPTURE (04/26/2025 6:35 AM EDT) Anatomical Region Laterality Modality Ultrasound Narrative 04/26/2025 6:35 AM EDT Darwin Patton MD 04/26/2025 6:35 AM Anesthesia Point of Care Image Capture Performed by: Darwin Patton MD Authorized by: Angela Guadalupe MD Accession Number: [id number] us Angela Guadalupe MD IMG POINT OF CARE EXAMS Final Re sult * Point of Care Image Capture (04/25/2025 9:58 AM EDT) us Angel Alberts MD IMG POINT OF CARE EX AMS Final Result [facility] INTERFACES from Last 3 Months Insurance [employer]MO [employer] [place] [address] [place] [address] [place] [address] [place] [address] [place] [address] [place] [place] [address] [employer] Care Teams Physical Sciences Instructor Relationship Specialty Start Date End Date Pranay Grigsby MD [address] [place] [address] PCP - General Internal Medicine 11/17/24 Additional Source Comments The information contained in this document represents components of the legal health record. It is not the complete legal health record.[facility]
--- OUTSIDE RECORDS SUMMARY | 2025-05-09 17:37 | XMS_ITS | Encounter Summary ---
Author Organization [facility] Address [address] [place] [address] Phone Care Team Providers Care Barrer And Tacker Name Role Phone Pranay Grigsby MD Primary Care Provider [phone] Encounter Details Date Type Department Care Team ([facility] st Contact Info) Description 04/26/2025 Orders Only [facility] ORTHOPEDICS VIRTUAL DEPARTMENT [address] [place] [address] Myra Larios MD [address] [facility] [address], [place] [address] [email or web address] Social History Tobacco Use Types Packs/Day Years [...] Description 06/02/2025 9:45 AM EDT Office Visit [facility] Department of Orthopaedic Surgery [address] [address] Angel Alberts MD [address] [place] [id number] [email or web address] documented as of this encounter Visit Diagnoses Not on filedocumented in this encounter Care Teams Barrer And Tacker Relationship Specialty Start Date End Date Pranay Grigsby MD [facility] [place] [address] PCP - General Internal Medicine 11/17/24 documented as of this encounter Additional Source Comments The information contained in this document represents components of the legal health record. It is not the complete legal health record.[facility]
--- OUTSIDE RECORDS SUMMARY | 2025-05-09 17:37 | XMS_ITS | Clinical Summary ---
Author Organization [facility] Address [address] [place] [address] Care Team Providers Care Mirror Maker Name Role Phone Kp Parkinson MD Primary Care Provider Unavailab le Allergies Active Allergy Reactions Criticality Noted Date Comments Seasonal 06/10/2022 Medications Medication Sig Dispensed Refills Start Date End Date Status atorvastatin (LIPITOR) tablet 10 mg Take 10 mg by mouth daily. 0 04/25/2022 Active colestipol (COLESTID) 1 g tablet daily. 0 06/05/2022 Active hydrOXYzine (ATARAX) 50 MG tablet Take 50 mg by mouth every night at bedtime as needed. for anxiety 0 04/15/2022 Active ibuprofen 200 MG tablet Take 200 mg by mouth every 6 (six) hours as needed. 0 Active lisinopril (PRINIVIL,ZESTRIL) tablet 20 mg Take 20 mg by mouth daily. 0 04/12/2022 Active zolpidem (AMBIEN) 10 MG tablet TAKE 1 TABLET BY MOUTH EVERY DAY AT BEDTIME NEEDED FOR INSOMNIA 0 05/23/2022 Active tamsulosin (FLOMAX) 0.4 MG CAPS Take 0.8 mg by mouth daily. 0 04/26/2022 Active Multiple Vitamin (MULTIVITAMIN ADULT PO) Take by mouth daily. 0 Active Probiotic Product (PROBIOTIC DAILY PO) Take by mouth daily. 0 Active Social History Tobacco Use Types Packs/Day Years Used Date Smoking Tobacco: Never Smokeless Tobacco: Never Sex and Gender Information Value Date Recorded Sex Assigned at Not on file Gender Identity Not on file Sexual Orientation Not on file Job Start Date Occupation Industry Not on file Not on file Not on file Last Filed Vital Signs Vital Sign Reading Time Taken Comments Blood Pressure 90/60 06/10/2022 10:33 AM EDT Pulse 65 06/10/2022 10:33 AM EDT Temperature 36.6 C (97.8 F) 06/10/2022 10:33 AM EDT Respiratory Rate - - Oxygen Saturation 99% 06/10/2022 10: 33 AM EDT Inhaled Oxygen Concentration - - Weight 119.8 kg (264 lb 3.2 oz) 022 10:33 AM EDT Height 180.3 cm (5' 11 ) 06/10/2022 10: 33 AM EDT Body Mass Index 36.85 06/10/2022 10:33 AM EDT Plan of Treatment Health Maintenance Due Date Last Done Comments Hepatitis B Vaccines (1 of 3 - 3-dose series) 1968 Hepatitis C Screening 1968 COVID-19 Vaccine (#1) 03/03/1969 Depression Screening 1980 Preventative Health Evaluation 1986 DTap / Tdap / Td (1 - Tdap) 1987 Colon Cancer Screening (Colonoscopy) 2013 Shingrix-Zoster Vaccine (1 of 2) 2018 BMI Counseling 06/10/2023 06/10/2022 Influenza Vaccine (#1) 2025 07/16/2013 Pneumococcal Vaccine Aged Out No long er eligible based on patient's age to complete this topic RSV Ped < 20 months Aged Out No longe r eligible based on patient's age to complete this topic Care Teams Mirror Maker Relationship Specialty Start Date End Date Kp Parkinson MD PCP - General Family Medicine 05/29/22
--- OUTSIDE RECORDS SUMMARY | 2025-05-09 17:37 | XMS_ITS | Clinical Summary ---
Author Organization [facility] Address [address] [place] [address] Phone Care Team Providers Care Bingo Floater Name Role Phone Pranay Grigsby MD Primary Care Provider [phone] Allergies Active Allergy Reactions Criticality Noted Date Comments Other 06/10/2022 Medications atorvastatin (LIPITOR) 10 mg tablet Take 10 mg by mouth daily. 2 Active colestipoL (COLESTID) 1 gram tablet daily. 2 Active hydrOXYzine HCL (ATARAX) 50 mg tablet Take 50 mg by mouth every night at bedtime as needed. for anxiety 2 Active lisinopriL (PRINIVIL,ZESTRI L) 20 mg tablet Take 20 mg by mouth daily. 2 Active tamsulosin (FLOMAX) 0.4 mg 24 hr capsule Take 0.8 mg by mouth daily. 2 Active zolpidem (AMBIEN) 10 mg tablet TAKE 1 TABLET BY MOUTH EVERY DAY AT BEDTIME NEEDED FOR INSOMNIA 2 Active ibuprofen (ADVIL,MOTRIN) 200 mg tablet Take 200 mg by mouth every 6 (six) hours as needed. Active multivitamin (MULTIPLE VITAMINS ORAL) Take by mouth daily. Active Lactobacillus acidophilus (PROBIOTIC ORAL) Take by mouth daily. Active Active Problems No known active problems Surgical History Surgery Date Site/Laterality Comments KNEE SURGERY PROCEDURE: HISTORICAL KNEE SURGERY COLONOSCOPY 12/19/2014 PROCEDURE: HISTORICAL COLONOSCOPY Medical History Medical History Date Comments Overweight(278.02) 07/05/2010 DX:Overweight (278.02) Hypertriglyceridemia 07/05/2010 DX:Hypertri glyceridemia Family History Medical History Relation Name Comments Bladder Cancer Father Lung cancer Father Breast cancer Mother Colon cancer Mother mets to liver Relation Name Status Comments Father (Age 72) bladder ca ncer, lung cancer Mother (Age 64) colon canc er , breast cancer Sister 1 Alive Sister 2 Alive Social History Tobacco Use Types Packs/Day Years Used Date Smoking Tobacco: Never Smokeless Tobacco: Never Alcohol Use Standard Drinks/Week Comments Yes 0.8 (1 standard drink = 0.6 oz p ure alcohol) Sex and Gender Information Value Date Recorded Sex Assigned at Male 10/16/2024 4:14 PM EST Legal Sex Male 9:56 PM EST Gender Identity Male 10/16/2024 4:14 PM EST Sexual Orientation Straight 10/16/2024 4: 14 PM EST Obstetrics History Last Filed Vital Signs Vital Sign Reading Time Taken Comments Blood Pressure 180/80 10/16/2024 1:34 PM EST Pulse 78 10/16/2024 1:34 PM EST Temperature 36.9 C (98.4 F) 10/16/2024 1:34 PM EST Respiratory Rate 16 10/16/2024 1:34 PM EST Oxygen Saturation 97% 10/16/2024 1:34 PM EST Inhaled Oxygen Concentration - - Weight 118 kg (260 lb) 10/16/2024 1:34 PM EST Height 180.3 cm (5' 11 ) 10/16/2024 1:34 PM EST Body Mass Index 36.26 10/16/2024 1:34 PM EST Plan of Treatment Health Maintenance Due Date Last Done Comments IPV Vaccines (2 of 3 - Adult catch-up series) 10/13/1988 09/15/1988 Pneumococcal Vaccine: 50+ Years (1 of 1 - PCV) 2018 Cholesterol Screening (Lipid Panel) 08/24/2022 Colorectal Cancer Screening: Colonoscopy 08/24/2022 HIV Screening 08/24/2022 Hepatitis C Screening 08/24/2022 Hypertension/CHF/CAD Annual BMP Blood Test 08/24/2022 Social Influencers of Health Screening 08/24/2022 COVID-19 Vaccine ( season) 2024 10/29/2020, 09/29/2020 Depression Screening 09/15/2024 Influenza Vaccine (#1) 2025 , 06/28/2024, 06/30/2021, Additional history exists DTaP,Tdap,and Td Vaccines (5 - Td or Tdap) 07/15/2029 07/15/2019, 11/25/2009, 12/09/1999, Additional history exists Hepatitis A Vaccines Aged Out 01/19/2000, 07/22/19 99 No longer eligible based on patient's age to complete this topic Hepatitis B Vaccines Completed 02/13/2013, 06/25/2012, 05/23/2012 MMR Vaccines Aged Out 07/18/2018, 12/23/1999 No lo nger eligible based on patient's age to complete this topic Meningococcal ACWY Vaccine Aged Out 07/18/2018, No longer eligible based on patient's age to complete this topic Zoster Vaccines Completed 07/17/2024, 05/02/2024 HIB Vaccines Aged Out No longer eligi ble based on patient's age to complete this topic HPV Vaccines Aged Out No longer eligi ble based on patient's age to complete this topic Meningococcal B Vaccine Aged Out No l onger eligible based on patient's age to complete this topic RSV Immunization Patients Under 20 months Aged Out No longer eligible based on patient's age to complete this topic Varicella Vaccines Aged Out No longer eligible based on patient's age to complete this topic [place] [address] [address] [place] [address] [place] [address] [facility] Care Teams Bingo Floater Relationship Specialty Start Date End Date Pranay Grigsby MD [address] [place] [address] [phone] PCP - General Internal Medicine 10/16/24
== END 2025-05-10 14:10 | disposition home or self-care (01) ==
LOC: HO.HMGAL 15:36
PROVIDERS: PCP Internal Medicine; Visit Provider Registered Nurse Emergency
DX: J30.89 Other allergic rhinitis (principal)
CPT/HCPCS: 95117; 95165

== ENCOUNTER 2025-06-06 10:46 | Outpatient (AMB) | payer OTHER, SELFPAY ==
--- OUTSIDE RECORDS SUMMARY | 2025-06-02 09:45 | XMS_ITS | Encounter Summary ---
Author Organization [facility] Address [address] [place] [address] [place] [address] Phone Care Team Providers Care Structural Biologist Name Role Phone Pranay Grigsby MD Primary Care Provider +1- [phone] Reason for Visit * Reason Comments Post-op Shoulder Pain right Encounter Details Date Type Department Care Team (Late st Contact Info) Description 06/02/2025 9:45 AM EDT Office [place] [facility]opaedic Surgery [address] [address] Angel Alberts MD [address] [place] [phone] ANNABELLA@[email or web address] S/P rotator cuff repair (Primary [...] - - Weight 117.9 kg (260 lb) 06/02/2025 9:45 AM EDT Height 180.3 cm (5' 11 ) 06/02/2025 9:45 AM EDT Body Mass Index 36.26 06/02/2025 9:45 AM EDT documented in this encounter Progress Notes * Angel Alberts MD - 06/02/2025 9:45 AM EDT Images from the original note were not included. Patient Id: Azeem Crump is a 54 y.o. male [id number] Encounter Date: 06/02/2025 No chief complaint on file. 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 Patient is now 5 weeks postop. Patient prefers to wear the sling intact. He does notice that when he takes the sling off for more than 15 minutes he will start to get a lateral shoulder pain that will start to hurt. This is real pain. Patienthas been just doing passive motion. Has numbness and tingling in the forearm and wrist. Pt seen 05-04-2025-Patient is now 8 days postop. Patient reports [...] will going to keep an eye on it. Patient will start physical therapy whichhas already been ordered which will be passive external rotation 0 to 30 degrees, passive forward elevation 0 to 90 degrees, passive abduction 0 to 90 degrees. No strengthening no internal rotation. Follow-up with [facility] in 5 weeks for reevaluation. At that time the bump will come out and he willstart active assisted range of motion all planes. We are going very slow because it was a massive tear. 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 Right shoulder-passive external rotation to 40 degrees passive abduction 90 degrees passive forwardelevation 90 degrees. 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 Plan: Patient will continue wearing the sling with a bump. He can transition out of this as he feels morecomfortable for starting with not sleeping with it and then will wear the sling during the day or when he is out in public. He can take the bump out when he feels like that will help him but at this time he is going to wear the bump which we left. 2. Physical therapy will just be active assisted range of motion all planes only active assisted. No active range of motion until 12 weeks. The reason for this is because of the massive tear. 3. Follow-up in 7 weeks for reevaluation. At that time we will be 12 weeks and will start to gentlystrengthen. 4. Patient understands at this time he will still be nonweightbearing no real active motion on his own which she has been very diligent with. Patient Education: The patient and I reviewed [...] 04/26/2025 Performed by Angel Alberts MD at [facility] OR RIGHT DECOMPRESSION SUBACROMIAL SHOULDER Right 04/26/2025 Performed by Angel Alberts MD at [facility] [place] No family history on file. Social [...] Care Team (Late st Contact Info) Description 07/28/2025 10:00 AM EST Office Visit [facility] Department of Orthopaedic Surgery - [address] [address] Angel Alberts MD [address] [place] [address] [email or web address] documented as of this encounter Visit Diagnoses Diagnosis S/P rotator cuff repair- Primary Traumatic complete tear of right rotator cuff, subsequent encounter documented in this encounter Care Teams Structural Biologist Relationship Specialty Start Date End Date Pranay Grigsby MD [address] [place] [address] PCP - General Internal Medicine 11/17/24 documented as of this encounter Additional Source Comments The information contained in this document represents components of the legal health record. It is not the complete legal health record.[facility]
--- OUTSIDE RECORDS SUMMARY | 2025-06-06 13:15 | XMS_ITS | Clinical Summary ---
Author Organization [facility] Address [address] [place] [address] Care Team Providers Care Sterile Proc Tech Name Role Phone Kp Parkinson MD Primary [...] age to complete this topic Care Teams Sterile Proc Tech Relationship Specialty Start Date End Date Kp Parkinson MD PCP - General Family Medicine 05/29/22
--- OUTSIDE RECORDS SUMMARY | 2025-06-06 13:15 | XMS_ITS | Encounter Summary ---
Author Organization [facility] Address [address] [place] [address] [place] [address] Phone Care Team Providers Care Accountant Tax Name Role Phone Jose David Schwarz MD Primary Care Provider + Pranay Grigsby MD Primary Care Provider +1- [phone] Encounter Details Date Type Department Care Team (Late st Contact Info) Description 07/16/2019 Procedure Pass [facility] General Imaging [address] [place] [address] Social History Tobacco Use Types Packs/Day Years [...] [place] Department of Orthopaedic Surgery - [address] [address] Angel Alberts MD [address] [place] [address] [email or web address] documented as of this encounter Visit Diagnoses Not on filedocumented in this encounter Care Teams Accountant Tax Relationship Specialty Start Date End Date Jose David Schwarz MD [address] [place] [address] PCP - General Internal Medicine 07/16/19 11/16/24 Pranay Grigsby MD [address] [place] [address] PCP - General Internal Medicine 11/17/24 documented as of this encounter Additional Source Comments The information contained in this document represents components of the legal health record. It is not the complete legal health record.[facility]
--- OUTSIDE RECORDS SUMMARY | 2025-06-06 13:15 | XMS_ITS | Encounter Summary ---
Author Organization [facility] Address [address] [facility] [address] [place] [address] Phone Care Team Providers Care Water Chemist Name Role Phone Pranay Grigsby MD Primary Care Provider +1- [phone] Encounter Details Date Type Department Care Team (Late st Contact Info) Description 04/26/2025 Procedure Pass [facility] [address] [place] [address] Social History Tobacco Use Types Packs/Day Years [...] Description 07/28/2025 10:00 AM EST Office [place] [facility] [place] [address] [address] Angel Alberts MD [address] [place] [address] [email or web address] documented as of this encounter Visit Diagnoses Not on filedocumented in this encounter Care Teams Water Chemist Relationship Specialty Start Date End Date Pranay Grigsby MD [address] [place] [address] PCP - General Internal Medicine 11/17/24 documented as of this encounter Additional Source Comments The information contained in this document represents components of the legal health record. It is not the complete legal health record.[facility]
--- OUTSIDE RECORDS SUMMARY | 2025-06-06 13:15 | XMS_ITS | Encounter Summary ---
Author Organization [facility] Address [address] [place] [address] [place] [address] Phone Care Team Providers Care Flakeboard Line Tender Name Role Phone Jose David Schwarz MD Primary Care Provider + Pranay Grigsby MD Primary Care Provider +1- [phone] Encounter Details Date Type Department Care Team (Late st Contact Info) Description 07/16/2019 Procedure Pass [facility] General Imaging [address] [place] [address] Social History Tobacco Use Types Packs/Day Years [...] Description 07/28/2025 10:00 AM EST Office Visit [facility] [place] Department of Orthopaedic Surgery - [address] [address] Angel Alberts MD [address] [place] [address] [email or web address] documented as of this encounter Visit Diagnoses Not on filedocumented in this encounter Care Teams Flakeboard Line Tender Relationship Specialty Start Date End Date Jose David Schwarz MD [address] [place] [address] PCP - General Internal Medicine 07/16/19 11/16/24 Pranay Grigsby MD [address] [place] [address] PCP - General Internal Medicine 11/17/24 documented as of this encounter Additional Source Comments The information contained in this document represents components of the legal health record. It is not the complete legal health record.[facility]
--- OUTSIDE RECORDS SUMMARY | 2025-06-06 13:15 | XMS_ITS | Clinical Summary ---
Author Organization [facility] Address [address] [place] [address] Phone Care Team Providers Care Flanger Name Role Phone Pranay Grigsby MD Primary Care Provider +1- [phone] Allergies No known active allergies Medications sertraline (ZOLOFT) 25 MG tablet Take 25 mg by mouth daily. Active tamsulosin (FLOMAX) 0.4 mg Cap Take 0.4 mg by mouth daily. Active atorvastatin (LIPITOR) 10 MG tablet Take 1 tablet by mouth daily. 08/02/2024 Active lisinopril (PRINIVIL,ZESTR IL) 20 MG tablet Take 1 tablet by mouth daily. 08/17/2023 Active zolpidem (AMBIEN) 5 MG tablet Take 5 mg by mouth. 11/02/2024 Active LORazepam (ATIVAN) 0.5 MG tablet Take 1 tablet by mouth 3 (three) times a day as needed. 07/09/2023 Active colestipol (COLESTID) 1 gram tablet TAKE 2 TABLETS BY MOUTH 2 TIMES DAILY (WITH MEALS) FOR 360 DAYS. 08/26/2024 Active cyclobenzaprine (FLEXERIL) 5 MG tablet Take 1 tablet by mouth 3 (three) times a day as needed. Active DULoxetine (CYMBALTA) 30 MG capsule Take 1 capsule by mouth daily. 11/10/2024 Active gabapentin (NEURONTIN) 300 MG capsule Take 300 mg by mouth. 11/01/2024 Active metoprolol succinate (TOPROL-XL) 25 MG 24 hr tablet Take 25 mg by mouth daily. Active aspirin 325 MG tablet Take 1 tablet (325 mg total) by mouth 2 (two) times a day. 60 tablet 04/26/2025 Active oxyCODONE 5 MG immediate release tablet Take 1 tablet (5 mg total) by mouth every 4 (four) hours as needed for pain (specific location in comments). Partial fill ok 12 tablet 04/26/2025 Active acetaminophen (TYLENOL) 500 mg capsule Take 2 capsules (1,000 mg total) by mouth every 6 (six) hours as needed for fever. 60 capsule 04/26/2025 Active Active Problems Problem Noted Date Diagnosed Date Primary hypertension 04/18/2025 Sleep apnea 04/18/2025 Encounters Date Type Department Care Team Description 06/02/2025 9:45 AM EDT Office [place] [facility] [address] [address] Angel Alberts MD S/P rotator cuff repair (Primary Dx); Traumatic complete tear of right rotator cuff, subsequent encounter 05/04/2025 11:00 AM EDT Office [place] [facility] of [place]edic [place] [address] [address] Angel Alberts MD S/P rotator cuff repair (Primary Dx); Traumatic complete tear of right rotator cuff, subsequent encounter 04/26/2025 7:30 AM EDT - 04/26/2025 10:00 AM EDT Surgery [facility] [address] [place] [address] Angel Alberts MD RIGHT ARTHROSCOPIC REPAIR ROTATOR CUFF SHOULDER, augmented with autologous bursa 04/26/2025 7:18 AM EDT Anesthesia Event [facility] [address] [place] [address] Angela Guadalupe MD Oneto, Agustin Julian, MD 04/26/2025 6:40 AM EDT Ancillary Procedure [facility] [place] Bedside Ultrasound VRT [address] [place] [address] Angela Guadalupe MD 04/26/2025 5:44 AM EDT - 04/26/2025 11:59 AM EDT Hospital Encounter [facility] [address] [place] [address] Angel Alberts MD Discharge Disposition: Home or Self Care 04/26/2025 Orders Only [facility] [address] [place] [address] Myra Larios MD 04/26/2025 Procedure Pass [facility] [address] [place] [address] 04/25/2025 1:00 PM EDT Pre-Admission Testing [facility] Pre-Procedure Evaluation Department [place] [address] Angel Alberts MD 04/25/2025 10:00 AM EDT Ancillary Procedure [facility] [place] Bedside Ultrasound VRT [address] [place] [address] Angel Alberts MD Acute pain of right shoulder 04/25/2025 Orders Only [facility] Department of Orthopaedic Surgery, Sports Medicine Service [address] [facility], [address] [place] [address] Angel Alberts MD Acute pain of right shoulder (Primary Dx) 04/07/2025 10:45 AM EDT Office [place] [facility] [place] of [place]opaedic Surgery [address] [address] Angel Alberts MD Acute pain of right [...] Mass Index 36.26 06/02/2025 9:45 AM EDT Plan of Treatment Upcoming Encounters Date Type Department Care Team (Late st Contact Info) Description 07/28/2025 10:00 AM EST Office [place] [facility] [place] of [place]edic Surgery - [address] [address] Angel Alberts MD [address] [place] [address] [email or web address] Health Maintenance Due Date Last [...] years) (1 of 1 - PCV) 2018 INFLUENZA VACCINE (#1) 2025 , 07/16/2013 COVID-19 VACCINE (2 - 2024-2 6 season) 2025 10/29/2020 Adult Td,Tdap Booster 07/15/2029 07/15/2019 ZOSTER VACCINES Completed 07/17/2024, 05/02/2024 SMOKING STATUS SCREENING (On ce After 26 Yrs) Completed 06/02/2025 HEPATITIS A VACCINES Aged Out No long [...] this topic Medical Devices Implanted Type Area Furnace Reliner Device Identifier Shelf Expiration Date Model / Serial / Lot Wild Horse Soft Sp 2.6 Fibertak Triple Loaded W/1.3mm Suture Tape Wht/Aftab Blk/Wht Self-Punching Bx/5ea - [id number] Implanted:Qty: 1 on 04/26/2025 by Angel Alberts MD at [facility] Right: Shoulder [employer] [id number] 01/12/2029 AR-3633SP / / [id number] Wild Horse Soft Sp 2.6 Fibertak Triple Loaded W/1.3mm Suture Tape Wht/Aftab Blk/Wht Self-Punching Bx/5ea - [id number] Implanted:Qty: 1 on 04/26/2025 by Angel Alberts MD at [facility] Right: Shoulder [employer] [id number] 01/12/2029 AR-3633SP / / [id number] Wild Horse Soft Sp 2.6 Fibertak Triple Loaded W/1.3mm Suture Tape Wht/Aftab Blk/Wht Self-Punching Bx/5ea - [id number] Implanted:Qty: 1 on 04/26/2025 by Angel Alberts MD at [facility] Right: Shoulder [employer] [id number] 01/12/2029 AR-3633SP / / [id number] Wild Horse Swivelock 4.55ctz67.5mm W/1.3mm Suture Tape White/Blue Self Punching Bc Bx/5ea - [id number] Implanted:Qty: 1 on 04/26/2025 by Angel Alberts MD at [facility] Right: Shoulder [employer] [id number] 01/12/2029 AR-2324KB CSP / / [id number] Wild Horse Swivelock 4.31stu48.5mm W/1.3mm Suture Tape White/Blue Self Punching Bc Bx/5ea - [id number] Implanted:Qty: 1 on 04/26/2025 by Angel Alberts MD at [facility] Right: Shoulder [employer] [id number] 12/13/2028 AR-2324KB CSP / / [id number] Wild Horse Swivelock 4.27gqw17.5mm W/1.3mm Suture Tape White/Blue Self Punching Bc Bx/5ea - [id number] Implanted:Qty: 1 on 04/26/2025 by Angel Alberts MD at [facility] Right: Shoulder [employer] [id number] 01/12/2029 AR-2324KB CSP / / [id number] Procedures Procedure Name Priority Date/Time Associated Diagnosis Comments AIRWAY PLACEMENT Routine 04/26/2025 7:38 AM EDT DECOMPRESSION SUBACROMIAL SHOULDER 04/26/2025 7:26 AM EDT Tear of right rotator cuff, unspecified tear extent, unspecified whether traumatic Special Needs PAIN PUMP AR SHLDR ARTHROSCOP,SURG,W/RO TAT CUFF REPR 04/26/2025 7:26 AM EDT Tear of right rotator cuff, unspecified tear extent, unspecified whether traumatic Special Needs PAIN PUMP ANES PERIPHERAL BLOCK LDA Routine 04/26/2025 7:00 AM EDT AR ANESTHESIA PERIPHERAL BLOCK PLACEHOLDER Routine 04/26/2025 7:00 AM EDT ANESTHESIA POINT OF CARE IMAGE CAPTURE Routine 04/26/2025 6:35 AM EDT POINT OF CARE IMAGE CAPTURE Routine 04/25/2025 9:58 AM EDT Acute pain of right shoulder from Last 3 Months Results * ANES ETT DOUBLE LUMEN - AIRWAY LDA (04/26/2025 7:38 AM EDT) Godwin Jacobs CRNA - 04/26/2025 7:38 AM EDT Godwin Rondon CRNA 04/26/2025 7:39 AM Airway Placement Procedure Note: Procedure performed by: anesthesiologist and fellow/resident/RABBIT FANCIER Anesthesiologist: Angela Guadalupe MD Fellow/Resident/RABBIT FANCIER: Godwin Rondon CRNA Airway procedure initiated at:04/26/2025 7:38 AM and ended at. Personal Protective Equipment: Mask: surgical mask Eye Protection: eye shield Gloves: gloves Gown: no gown Airway Placement: Technique: LMA LMA Insertion: LMA size: 5 LMA placement attempts: 1. Outcomes: Evidence of dental injury? no Complications observed? no us Angela Guadalupe MD AR ANESTHESIA Final Result * AR ANESTHESIA PERIPHERAL BLOCK PLACEHOLDER, ANES PERIPHERAL BLOCK LDA (04/26/2025 7:00 AM EDT) Narrative Darwin Patton MD - 04/26/2025 7:00 AM EDT Darwin Patton MD 04/26/2025 7:24 AM Peripheral Block Placement Procedure Note: Start Time: 04/26/2025 7:00 AM Stop Time:04/26/2025 7:20 AM Reason for block: surgeon request and post op pain managment Block performed by: fellow/resident/RABBIT FANCIER and anesthesiologist Anesthesiologist: Angela Guadalupe MD Fellow/Resident/RABBIT FANCIER: Darwin Patton MD [place] Protocol Performed: consent obtained, patient identified with [...] tolerated it well. us Angela Guadalupe MD AR ANESTHESIA Final Result * ANESTHESIA POINT OF CARE IMAGE CAPTURE (04/26/2025 6:35 AM EDT) Anatomical Region Laterality Modality Ultrasound Narrative 04/26/2025 6:35 AM EDT Darwin Patton MD 04/26/2025 6:35 AM Anesthesia Point of Care Image Capture Performed by: Darwin Patton MD Authorized by: Angela Guadalupe MD Accession Number: [id number] us Angela Guadalupe MD IMG POINT OF CARE EXAMS Final Re sult * Point of Care Image Capture (04/25/2025 9:58 AM EDT) us Angel Alberts MD IMG POINT OF CARE EX AMS Final Result [facility] [place] INTERFACES from Last 3 Months Insurance [facility] [place] [address] [address] [place] [address] [place] [address] [place] [address] [employer] Care Teams Flanger Relationship Specialty Start Date End Date Pranay Grigsby MD [facility] [place] [address] PCP - General Internal Medicine 11/17/24 Additional Source Comments The information contained in this document represents components of the legal health record. It is not the complete legal health record.[facility]
--- OUTSIDE RECORDS SUMMARY | 2025-06-06 13:15 | XMS_ITS | Encounter Summary ---
Author Organization [facility] Address [address] [place] [address] [place] [address] Phone Care Team Providers Care Glost Tile Shader Name Role Phone Jose David Schwarz MD Primary Care Provider + Pranay Grigsby MD Primary Care Provider +1- [phone] Encounter Details Date Type Department Care Team (Late st Contact Info) Description 07/16/2019 Procedure Pass [facility] General Imaging [address] [place] [address] Social History Tobacco Use Types Packs/Day Years [...] Description 07/28/2025 10:00 AM EST Office Visit [facility] [place] Department of Orthopaedic Surgery - [address] [address] Angel Alberts MD [address] [place] [address] [email or web address] documented as of this encounter Visit Diagnoses Not on filedocumented in this encounter Care Teams Glost Tile Shader Relationship Specialty Start Date End Date Jose David Schwarz MD [address] [place] [address] PCP - General Internal Medicine 07/16/19 11/16/24 Pranay Grigsby MD [address] [place] [address] PCP - General Internal Medicine 11/17/24 documented as of this encounter Additional Source Comments The information contained in this document represents components of the legal health record. It is not the complete legal health record.[facility]
--- OUTSIDE RECORDS SUMMARY | 2025-06-06 13:15 | XMS_ITS | Clinical Summary ---
Author Organization [facility] Address [address] [place] [address] Phone Care Team Providers Care Bonderizer Name Role Phone Pranay Grigsby MD Primary Care Provider [phone] Allergies Active Allergy Reactions Criticality Noted Date [...] 08/24/2022 Social Influencers of Health Screening 08/24/2022 Depression Screening 09/15/2024 COVID-19 Vaccine ( season) 2025 10/29/2020, 09/29/2020 Influenza Vaccine (#1) 2025 , 06/28/2024, 06/30/2021, Additional history exists DTaP,Tdap,and Td Vaccines (5 - Td or Tdap) 07/15/2029 07/15/2019, 11/25/2009, 12/09/1999, Additional history exists RSV Immunization Adult Patients (1 - 1-dose 75+ series) 2043 Hepatitis A Vaccines Aged Out 01/19/2000, 07/22/19 [...] patient's age to complete this topic Insurance [facility] [place] [id number] [facility] Care Teams Bonderizer Relationship Specialty Start Date End Date Pranay Grigsby MD [address] [place] [address] PCP - General Internal Medicine 10/16/24
== END 2025-06-06 10:52 | disposition home or self-care (01) ==
LOC: HO.HMGAL 10:46
PROVIDERS: PCP Internal Medicine; Visit Provider Registered Nurse Emergency
DX: J30.89 Other allergic rhinitis (principal)
CPT/HCPCS: 95117; 95165

== ENCOUNTER 2025-07-11 15:00 | Outpatient (AMB) | payer OTHER, SELFPAY ==
--- OUTSIDE RECORDS SUMMARY | 2025-07-11 18:24 | XMS_ITS | Data Portability ---
Author Organization [place] - [facility] Address [address] [place] [address] Care Team Providers Care Sales Representative Wire Rope Name Role Phone MIKALA MATTHEWS Rn Pain Management TONYA VALDEZ Primary Care Provider [phone] TONYA VALDEZ Referring Provider Assessment Encounter Date Assessment Date Assessment LastModified by Organization Details LastModified Time 08/12/2023 08/12/2023 the patient is a 52-year-old who returns to clinic with axial lower back pain with separate radicular symptoms that are minor in primarily consistent numbness and tingling. 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 Lab None recorded. Referral None recorded. Procedures facet joint injection , lumbar (PROC) - Is Patient on any ABX/Anti- Coag/NSAI DS/Cardia c Risk Factors/P acemaker? 023 023 [place] [facility], [place], [facility], [address] , [address], [place], [address], 09:45:53 Surgeries None recorded. Imaging None recorded. Medication Orders None recorded. Patient TargetsNo targets recorded. Patient InstructionsNo instructions recorded. Reason for Referral None Reported. Results Created Date Observation Date Name Description Value Unit Range Abnormal Flag Note LastModifiedBy Organization Detail LastModifiedTime 07/30/20 MRI, thora cic spine , w/o contr ast No observ ation record ed. [email or web address] Not Available 07/16 09:56:17 07/30/20 MRI, thora cic spine , w/o contr ast No observ ation record ed. [email or web address] Not Available 07/16 09:56:57 07/30/20 MRI, lumba r spine , w/o contr ast No observ ation record ed. [email or web address] Not Available 07/16 10:40:59 Result Notes None recorded. Procedures Surgical History Date Name Laterality Status Provider Name and Address Organization Details Recorded Time Knee Surgery completed [facility] [place], [facility] 08/19/2023 10:29:14 Imaging Results None recorded. Procedure Notes None recorded. Medical Equipment None Reported. Medications Name Sig Start Date Stop Date Status Note LastModified by Organization Details LastModified Time atorvastati n 10 mg tablet TAKE 1 TABLET BY MOUTH EVERY DAY active Not Available Not Available No t Available ibuprofen 800 mg tablet TAKE 1 TABLET BY MOUTH EVERY 8 HOURS NEEDED FOR PAIN FOR UP TO 30 DAYS. active Not Available Not Available No t Available lisinopril 20 mg tablet TAKE 1 TABLET BY MOUTH EVERY DAY active Not Available Not Available No t Available lorazepam 0.5 mg tablet TAKE 1 TABLET BY MOUTH EVERY 8 HOURS, NEEDED FOR ANXIETY 08/01 completed Not Available Not Available Not Available tamsulosin 0.4 mg capsule TAKE 2 CAPSULES BY MOUTH DAILY. TAKE 30 MINS AFTER SAME MEAL EVERY DAY. active Not Available Not Available No t Available hydroxyzine HCl 25 mg tablet TAKE 1 TABLET BY MOUTH THREE TIMES A DAY NEEDED FOR ANXIETY FOR UP TO 360 DAYS 08/01 completed Not Available Not Available Not Available gabapentin 100 mg capsule TAKE 1-3 CAPSULES BY MOUTH DAILY active Not Available Not Available No t Available zolpidem 10 mg tablet TAKE 1 TABLET BY MOUTH EVERY DAY AT BEDTIME NEEDED FOR INSOMNIA active Not Available Not Available No t Available colestipol 1 gram tablet TAKE 2 TABLETS BY MOUTH 2 TIMES DAILY (WITH MEALS) FOR 360 DAYS. active Not Available Not Available No t Available cyclobenzap rine 5 mg tablet TAKE 1 TABLET BY MOUTH 3 TIMES A DAY NEEDED FOR MUSCLE SPASMS active Not Available Not Available No t Available Vitals Date Recorded Body height Body weight Provider Name and Address Organization Details Last Updated DateTime 08/12/2023 180.3 cm 534205.4 g Not Available Capsule 07/17 18:52:19 Social History Question Answer Notes LastModified by Organizat [employer] Details LastModified Time Tobacco Smoking Status Never Smoker Dana berger [facility] 08/19/2023 10:29:13 Do You Have An Advance Directive? No Information not available 08/19/2023 Is Blood Transfusion Acceptable In An Emergency? Yes Information not available 08/19/2023 Who Is Your Employer? [place] [employer] [email or web address] Information not available 08/19/2023 Have You Fallen In The Past Year? No Information no t available 08/19/2023 What Is Your Relationship Status? [email or web address] Information not available 08/19/2023 Sex: Unknown Functional Status Question Answer Note LastModified by Organizat ion Details LastModified Time Do you use any illicit or recreational drugs? No [email or web address] Information not available 08/19/2023 What is your level of alcohol consumption? Occasional [email or web address] Information not available 08/19/2023 Do you or have you ever used smokeless tobacco? Never used smokeless tobacco Information not available 08/19/2023 Are you currently employed? Yes [email or web address] Information not available 08/19/2023 Are you able to care for yourself independently? Yes [email or web address] Information not available 08/19/2023 What is your occupation? [employer] Information not available 08/19/2023 Do you or have you ever used e-cigarettes or vape? Never used electronic cigarettes Information not available 08/19/2023 What is your exercise level? Moderate [email or web address] Information not available 08/19/2023 Mental Status None recorded. Family History Nothing Reported. Medical History No medical history recorded. Past Encounters Encounter ID Performer Location Encounter Start Date Encounter Closed Date Diagnosis/Indication Diagnosis SNOMED-CT Code Diagnosis ICD10 Code Diagnosis IMO Codes Diagnosis Note [id number] KIKO LEBLANC MD [facility] [address] [place] [address] 08/12/2023 10:49:25 08/15/2023 09:36:57 Lumbar radiculopathy 130359528 M54.16 Arthropath y of lumbar facet joint 661710224 M47.816 Health Concerns Section Related Observation LastModified by Organization Detai ls LastModified Time None Recorded Concern Status LastModified by Organization Details LastModified Time None Recorded Advance Directives Directive N: Payers Insurance Date Sequence Insurance Name Policy Number Policy Bertradn Covered Member ID Bertrand Member ID Guarantor Name 07/31/2023 [facility] [employer] COMPENS[employer] [facility] [employer]- Azeem Theron Notes Date Note Type Note Provider Name and Address Organization Details Recorded Time 08/12/2023 text/html [facility] New Pain Management ConsultReported by PatientHPIFor patient acknowledges associated symptoms to include, patient reportsnumbnessandti yolanda. For patient describes the pain to be, patient reportsbilateral,mid back,low back, andwith radiation to: b/l le. For patient describes the quality of the pain to be, patient reportsaching,burnin g,constant, andcurrently: 7/10 on vas scale. For patient describes the duration of pain to be, patient reportsdate of onset: 03/28/23andrelated to work injury. For patient states the pain is aggravated by, patient reportssitting(drivi ng). For patient's related surgeries, patient reportsnone. For patient's previous imaging includes, patient reportsx rayandmri. For patient's previous injections include, patient reportsnone. For patient has tried and failed, patient reportsrestandmedica tions: ibuprofen, gabapentin. the patient is a 52-year-old gentleman who presents to clinic today with lower back pain right worse than left worse with driving sitting some occasional numbness in right lower extremity additionally also complains of some mid back pain rated 7/10 MRI of the thoracic spine demonstrates lower thoracic degeneration most pronounced at C6-7 with small disc protrusions without cord or nerve root impingement MRI of the lumbar spine demonstrates multilevel disc degeneration facet arthritis with neural foraminal narrowing noted at L4-5 in L5-S1 KIKO LEBLANC MD [address], [place], [address], [facility] - Sports Medicine [place] 08/14/2023 12:57:27
--- OUTSIDE RECORDS SUMMARY | 2025-07-11 18:24 | XMS_ITS | Encounter Summary ---
Author Organization [facility] Address [address] [place] [address] Phone Care Team Providers Care Lead Architect Name Role Phone Pranay Grigsby MD Primary Care Provider [phone]- [phone] Encounter Details Date Type Department Care Team (Late st Contact Info) Description 04/26/2025 Procedure Pass [facility] W[facility] [address] [place] [address] Social History Tobacco Use Types Packs/Day Years [...] Description 07/28/2025 10:00 AM EST Office Visit [facility] Department of Orthopaedic Surgery [address] [address] Angel Alberts MD [address] [place] [address] [email or web address] documented as of this encounter Visit Diagnoses Not on filedocumented in this encounter Care Teams Lead Architect Relationship Specialty Start Date End Date Pranay Grigsby MD [address] [place] [address] PCP - General Internal Medicine 11/17/24 documented as of this encounter Additional Source Comments The information contained in this document represents components of the legal health record. It is not the complete legal health record.[facility]
--- OUTSIDE RECORDS SUMMARY | 2025-07-11 18:24 | XMS_ITS | Clinical Summary ---
Author Organization [facility] Address [address] [place] [address] Phone Care Team Providers Care Obstetrics Nurse Name Role Phone Pranay Grigsby MD Primary Care Provider [phone] Allergies Active Allergy Reactions Criticality Noted Date [...] Health Maintenance Due Date Last Done Comments Colorectal Cancer Screening: Colonoscopy 1968 IPV Vaccines (2 of 3 - Adult catch-up series) 10/13/1988 09/15/1988 Pneumococcal Vaccine: 50+ Years (1 of 1 - PCV) 2018 Cholesterol Screening (Lipid Panel) 08/24/2022 HIV Screening 08/24/2022 Hepatitis C Screening [...] patient's age to complete this topic Insurance [facility] ALEX CABELLO [id number] [facility] Care Teams Obstetrics Nurse Relationship Specialty Start Date End Date Pranay Grigsby MD [address] [place] [address] PCP - General Internal Medicine 10/16/24
--- OUTSIDE RECORDS SUMMARY | 2025-07-11 18:24 | XMS_ITS | Clinical Summary ---
Author Organization [facility] Address [address] [place] [address] Care Team Providers Care Air Pollution Specialist Name Role Phone Kp Parkinson MD Primary [...] age to complete this topic Care Teams Air Pollution Specialist Relationship Specialty Start Date End Date Kp Parkinson MD PCP - General Family Medicine 05/29/22
--- OUTSIDE RECORDS SUMMARY | 2025-07-11 18:24 | XMS_ITS | Encounter Summary ---
Author Organization [facility] Address [address] [place] [address] [place] [address] Phone Care Team Providers Care Board Certified Behavioral Analyst Name Role Phone Jose David Schwarz MD Primary Care Provider + Pranay Grigsby MD Primary Care Provider [phone] Encounter Details Date Type Department Care Team (Late st Contact Info) Description 07/16/2019 Procedure Pass [facility] General Imaging [address] [place] [address] Social History Tobacco Use Types Packs/Day Years [...] Description 07/28/2025 10:00 AM EST Office Visit [facility] Department of Orthopaedic Surgery - [address] [address] Angel Alberts MD [address] [place] [address] [email or web address] documented as of this encounter Visit Diagnoses Not on filedocumented in this encounter Care Teams Board Certified Behavioral Analyst Relationship Specialty Start Date End Date Jose David Schwarz MD [address] [place] [address] PCP - General Internal Medicine 07/16/19 11/16/24 Pranay Grigsby MD [address] [place] [address] PCP - General Internal Medicine 11/17/24 documented as of this encounter Additional Source Comments The information contained in this document represents components of the legal health record. It is not the complete legal health record.[facility]
--- OUTSIDE RECORDS SUMMARY | 2025-07-11 18:25 | XMS_ITS | Encounter Summary ---
Author Organization [facility] Address [address] [place] [address] [place] [address] Phone Care Team Providers Care Poultry Process Worker Name Role Phone Jose David Schwarz MD Primary Care Provider + Pranay Grigsby MD Primary Care Provider [phone]- [phone] Encounter Details Date Type Department Care Team (Late st Contact Info) Description 07/16/2019 Procedure Pass [facility] General Imaging [address] [place] [address] Social History Tobacco Use Types Packs/Day Years [...] Description 07/28/2025 10:00 AM EST Office Visit [facility] Department of Orthopaedic Surgery - [address] [address] Angel Alberts MD [address] [place] [address] [email or web address] documented as of this encounter Visit Diagnoses Not on filedocumented in this encounter Care Teams Poultry Process Worker Relationship Specialty Start Date End Date Jose David Schwarz MD [address] [place] [address] PCP - General Internal Medicine 07/16/19 11/16/24 Pranay Grigsby MD [address] [place] [address] PCP - General Internal Medicine 11/17/24 documented as of this encounter Additional Source Comments The information contained in this document represents components of the legal health record. It is not the complete legal health record.[facility]
--- OUTSIDE RECORDS SUMMARY | 2025-07-11 18:25 | XMS_ITS | Encounter Summary ---
Author Organization [facility] Address [address] [place] [address] [place] [address] Phone Care Team Providers Care Large Engine Assembler Name Role Phone Jose David Schwarz MD Primary Care Provider + Pranay Grigsby MD Primary Care Provider [phone]- [phone] Encounter Details Date Type Department Care Team (Late st Contact Info) Description 07/16/2019 Procedure Pass [facility] General Imaging [address] [place] [address] Social History Tobacco Use Types Packs/Day Years [...] Description 07/28/2025 10:00 AM EST Office Visit [facility] Department of Orthopaedic Surgery - [address] [address] Angel Alberts MD [address] [place] [address] [email or web address] [email or web address] documented as of this encounter Visit Diagnoses Not on filedocumented in this encounter Care Teams Large Engine Assembler Relationship Specialty Start Date End Date Jose David Schwarz MD [address] [place] [address] PCP - General Internal Medicine 07/16/19 11/16/24 Pranay Grigsby MD [address] [place] [address] PCP - General Internal Medicine 11/17/24 documented as of this encounter Additional Source Comments The information contained in this document represents components of the legal health record. It is not the complete legal health record.[facility]
--- OUTSIDE RECORDS SUMMARY | 2025-07-11 18:25 | XMS_ITS | Clinical Summary ---
Author Organization [facility] Address [address] [place] [address] Phone Care Team Providers Care Mining Captain Name Role Phone Pranay Grigsby MD Primary Care Provider [phone]- [phone] Allergies No known active allergies Medications sertraline [...] Description 06/02/2025 9:45 AM EDT Office Visit [facility] Department of Orthopaedic Surgery [address] [address] Angel Alberts MD S/P rotator cuff repair (Primary Dx); Traumatic complete tear of right rotator cuff, subsequent encounter 05/04/2025 11:00 AM EDT Office Visit [facility] Department of Orthopaedic Surgery [address] [address] Angel Alberts MD S/P rotator cuff repair (Primary Dx); Traumatic complete tear of right rotator cuff, subsequent encounter 04/26/2025 7:30 AM EDT - 04/26/2025 10:00 AM EDT Surgery [facility] [address] [place] [address] Angel Alberts MD RIGHT ARTHROSCOPIC REPAIR ROTATOR CUFF SHOULDER, augmented with autologous bursa 04/26/2025 7:18 AM EDT Anesthesia Event [facility] [address] [place] [address] Angela Guadalupe MD Oneto, Agustin Julian, MD 04/26/2025 6:40 AM EDT Ancillary Procedure [facility] Imaging Bedside Ultrasound VRT [address] [place] [address] Angela Guadalupe MD 04/26/2025 5:44 AM EDT - 04/26/2025 11:59 AM EDT Hospital Encounter [facility] EVIN PERIOP [address] [place] [address] Angel Alberts MD Discharge Disposition: Home or Self Care 04/26/2025 Orders Only [facility] ORTHOPEDICS VIRTUAL DEPARTMENT [address] [place] [address] Myra Larios MD 04/26/2025 Procedure Pass [facility] [address] [place] [address] 04/25/2025 1:00 PM EDT Pre-Admission Testing [facility] Pre-Procedure Evaluation Department Please [place] [address] Angel Alberts MD 04/25/2025 10:00 AM EDT Ancillary Procedure [facility] Imaging Bedside Ultrasound VRT [address] [place] [address] Angel Alberts MD Acute pain of right shoulder 04/25/2025 Orders Only [facility] Department of Orthopaedic Surgery, Sports Medicine Service [address] [facility], [address] [place] [address] Angel Alberts MD Acute pain of right shoulder (Primary Dx) from Last 3 Months Social History Tobacco [...] Description 07/28/2025 10:00 AM EST Office Visit [facility] Department of Orthopaedic Surgery [address] [address] Angel Alberts MD [address] [place] [address] [email or web address] Health Maintenance Due Date Last Done Comments [...] 2025 10/29/2020 Adult Td,Tdap Booster 07/15/2029 07/15/2019 RSV VACCINE (1 - 1-dose 75+ series) 2043 ZOSTER VACCINES Completed 07/17/2024, 05/02/2024 SMOKING STATUS [...] this topic Medical Devices Implanted Type Area Director Pediatric Device Identifier Shelf Expiration Date Model / Serial / Lot Whitt Soft Sp 2.6 Fibertak Triple Loaded W/1.3mm Suture Tape Wht/Aftab Blk/Wht Self-Punching Bx/5ea - [id number] Implanted:Qty: 1 on 04/26/2025 by Angel Alberts MD at [facility] Right: Shoulder [employer] [id number] 01/12/2029 AR-3633SP / / [id number] Whitt Soft Sp 2.6 Fibertak Triple Loaded W/1.3mm Suture Tape Wht/Aftab Blk/Wht Self-Punching Bx/5ea - [id number] Implanted:Qty: 1 on 04/26/2025 by Angel Alberts MD at [facility] Right: Shoulder [employer] [id number] 01/12/2029 AR-3633SP / / [id number] Whitt Soft Sp 2.6 Fibertak Triple Loaded W/1.3mm Suture Tape Wht/Aftab Blk/Wht Self-Punching Bx/5ea - [id number] Implanted:Qty: 1 on 04/26/2025 by Angel Alberts MD at [facility] Right: Shoulder [employer] [id number] 01/12/2029 AR-3633SP / / [id number] Whitt Swivelock 4.87ujx66.5mm W/1.3mm Suture Tape White/Blue Self Punching Bc Bx/5ea - [id number] Implanted:Qty: 1 on 04/26/2025 by Angel Alberts MD at [facility] Right: Shoulder [employer] [id number] 01/12/2029 AR-2324KB CSP / / [id number] Whitt Swivelock 4.19vtp70.5mm W/1.3mm Suture Tape White/Blue Self Punching Bc Bx/5ea - [id number] Implanted:Qty: 1 on 04/26/2025 by Angel Alberts MD at [facility] Right: Shoulder [employer] [id number] 12/13/2028 AR-2324KB CSP / / [id number] Whitt Swivelock 4.31kkc96.5mm W/1.3mm Suture Tape White/Blue Self Punching Bc Bx/5ea - [id number] Implanted:Qty: 1 on 04/26/2025 by Angel Alberts MD at [facility] Right: Shoulder [employer] [id number] 01/12/2029 AR-2324KB CSP / / [id number] Procedures Procedure Name Priority Date/Time Associated Diagnosis Comments AIRWAY PLACEMENT Routine 04/26/2025 7:38 AM EDT DECOMPRESSION SUBACROMIAL SHOULDER 04/26/2025 7:26 AM EDT Tear of right rotator cuff, unspecified tear extent, unspecified whether traumatic Special Needs PAIN PUMP VA SHLDR ARTHROSCOP,SURG,W/RO TAT CUFF REPR 04/26/2025 7:26 AM EDT Tear of right rotator cuff, unspecified tear extent, unspecified whether traumatic Special Needs PAIN PUMP ANES PERIPHERAL BLOCK LDA Routine 04/26/2025 7:00 AM EDT VA ANESTHESIA PERIPHERAL BLOCK PLACEHOLDER Routine 04/26/2025 7:00 [...] Procedure Note: Procedure performed by: anesthesiologist and fellow/resident/DIAL BUFFER Anesthesiologist: Angela Guadalupe MD Fellow/Resident/DIAL BUFFER: Godwin Rondon CRNA Airway procedure initiated at:04/26/2025 7:38 AM and ended at. Personal Protective Equipment: Mask: surgical mask Eye Protection: eye shield Gloves: gloves Gown: no gown Airway Placement: Technique: LMA LMA Insertion: LMA size: 5 LMA placement attempts: 1. Outcomes: Evidence of dental injury? no Complications observed? no Angela Guadalupe MD [facility] ANESTHESIA Final Result * [facility] ANESTHESIA PERIPHERAL BLOCK PLACEHOLDER, ANES PERIPHERAL BLOCK LDA (04/26/2025 7:00 AM EDT) Narrative Darwin Patton MD - 04/26/2025 7:00 AM EDT Darwin Patton MD 04/26/2025 7:24 AM Peripheral Block Placement Procedure Note: Start Time: 04/26/2025 7:00 AM Stop Time:04/26/2025 7:20 AM Reason for block: surgeon request and post op pain managment Block performed by: fellow/resident/DIAL BUFFER and anesthesiologist Anesthesiologist: Angela Guadalupe MD Fellow/Resident/DIAL BUFFER: Darwin Patton MD [place] Protocol Performed: consent obtained, patient identified with [...] tolerated it well. us Angela Guadalupe MD [facility] ANESTHESIA Final Result * ANESTHESIA POINT OF CARE IMAGE CAPTURE (04/26/2025 6:35 AM EDT) Anatomical Region Laterality Modality Ultrasound Narrative 04/26/2025 6:35 AM EDT Darwin Patton MD 04/26/2025 6:35 AM Anesthesia Point of Care Image Capture Performed by: Darwin Patton MD Authorized by: Angela Guadalupe MD Accession Number: [id number] us Angela Guadalupe MD IMG POINT OF CARE EXAMS Final Re sult * Point of Care Image Capture (04/25/2025 9:58 AM EDT) us Angel Alberts MD IMG POINT OF CARE EX AMS Final Result [facility] IMG INTERFACES from Last 3 Months [address] [place] [address] [place] [address] [place] [place] [address] [employer] Care Teams Mining Captain Relationship Specialty Start Date End Date Pranay Grigsby MD [address] [place] [address] PCP - General Internal Medicine 11/17/24 Additional Source Comments The information contained in this document represents components of the legal health record. It is not the complete legal health record.[facility]
== END 2025-07-11 15:02 | disposition home or self-care (01) ==
LOC: HO.HMGAL 15:00
PROVIDERS: PCP Internal Medicine; Visit Provider Registered Nurse Emergency
DX: J30.89 Other allergic rhinitis (principal)
CPT/HCPCS: 95117; 95165

== ENCOUNTER 2025-08-10 11:27 | Outpatient (AMB) | payer OTHER, SELFPAY ==
--- OUTSIDE RECORDS SUMMARY | 2025-08-09 11:00 | XMS_ITS | Encounter Summary ---
Author Organization [facility] Address [address] [place] [address] Phone Care Team Providers Care Advisor To Command In Combat Name Role Phone Pranay Grigsby MD Primary Care Provider +1- [phone] Encounter Details Date Type Department Care Team ([facility] st Contact Info) Description 08/09/2025 11:00 AM EST - 08/09/2025 11:59 PM [facility] Hospital Encounter [facility] Dept of Neurology [address] [place] [address] Angel Alberts MD [address] [facility] 4th [place] [address] [email or web address] Arrived Discharge Disposition: Home or Self Care Social History Tobacco Use Types Packs/Day Years [...] AM EDT documented as of this encounter Medications at Time of Discharge acetaminophen (TYLENOL) 500 mg capsule Take 2 capsules (1,000 mg total) by mouth every 6 (six) hours as needed for fever. 60 capsule 04/26/2025 aspirin 325 MG tablet Take 1 tablet (325 mg total) by mouth 2 (two) times a day. 60 tablet 04/26/2025 atorvastatin (LIPITOR) 10 MG tablet Take 1 tablet by mouth daily. 08/02/2024 colestipol (COLESTID) 1 gram tablet TAKE 2 TABLETS BY MOUTH 2 TIMES DAILY (WITH MEALS) FOR 360 DAYS. 08/26/2024 cyclobenzaprine (FLEXERIL) 5 MG tablet Take 1 tablet by mouth 3 (three) times a day as needed. DULoxetine (CYMBALTA) 30 MG capsule Take 1 capsule by mouth daily. 11/10/2024 gabapentin (NEURONTIN) 300 MG capsule Take 300 mg by mouth. 11/01/2024 lisinopril (PRINIVIL,ZESTRIL ) 20 MG tablet Take 1 tablet by mouth daily. 08/17/2023 LORazepam (ATIVAN) 0.5 MG tablet Take 1 tablet by mouth 3 (three) times a day as needed. 07/09/2023 metoprolol succinate (TOPROL-XL) 25 MG 24 hr tablet Take 25 mg by mouth daily. oxyCODONE 5 MG immediate release tablet Take 1 tablet (5 mg total) by mouth every 4 (four) hours as needed for pain (specific location in comments). Partial fill ok 12 tablet 04/26/2025 sertraline (ZOLOFT) 25 MG tablet Take 25 mg by mouth daily. tamsulosin (FLOMAX) 0.4 mg Cap Take 0.4 mg by mouth daily. zolpidem (AMBIEN) 5 MG tablet Take 5 mg by mouth. 11/02/2024 documented as of this encounter Procedure Notes * Lizz Astudillo MD, PhD - 08/09/2025 11:00 AM ESTAssociated Order(s): EMG Images from the original note were not included. EMG Laboratory [facility] [address], [address] [place] [address] (phone) [phone] (fax) Patient: Azeem Crump Sex: Male Unit #: [id number] Date of : 1970 Visit Date: 08/09/2025 11:09 AM Patient Age On Visit Date: 54 Years Current Height: 5 feet 11 inch Reason for Study: Azeem Crump is a 54 yo man who reports numbness and tingling in right hand for almost a year now; following his right rotator cuff diagnosis. Exam reveals 4+ weakness of right APB muscle and reduced sensation of lateral aspect of the right ring finger. Tinel negative at right wrist. Phalen test positive on the right. Nerve conduction studies: 1. Sensory conduction studies of the right median nerve demonstrated prolonged peak latency and reduced amplitude. Right ulnar sensory response demonstrated reduced amplitude and borderline peak latency. The right mixed median palm response demonstrated prolonged peak latency in comparison with itsulnar counterpart being the difference in latency of 1.3 ms (normal is 0.4 ms or less). Right radial sensory response was normal. 2. Motor conduction studies of the right median nerve demonstrated prolonged distal motor latency, normal amplitudes, and normal conduction velocity. Right ulnar nerve recording from the abductor digiti minimi was normal. Right ulnar nerve recording from the first dorsal interosseus demonstrated borderline amplitudes, normal conduction velocities and normal distal motor latency. Needle Electromyography: Needle examination of selected muscles in the right upper extremity was carried out. There was no evidence of abnormal insertional or spontaneous activity in any muscles sampled. Motor unit potentials were of normal morphology and recruitment pattern throughout. Clinical correlation: This is an abnormal study. There is electrical evidence to suggest the presence of: Moderate, right-sided median neuropathy at wrist such may be seen in carpal tunnel syndrome. Mild, right-sided, non-localizing, sensory>motor ulnar neuropathy. There is no electrical evidence to suggest the presence of cervical radiculopathy on the right. All data has been reviewed by me and I agree with the impression above. I certify that I was present for the carpenter portion of the needle EMG procedure. Lizz Harvey MD, PhD Neuromuscular Neurologist Neuromuscular Division [facility] Sensory NCS Nerve / Sites Distance Peak Lat Amplitude Temp. cm ms ??V ??C R Median - Dig II Dig II 13 4.8 6.3 32.6 Palm 8 3.5 32.5 32.2 R Ulnar - Dig V Dig V 11 2.9 6.6 31.3 Palm 8 2.2 10.7 30.1 R Radial - Snuff box Forearm 10 2.5 27.5 32.7 Motor NCS Nerve / Sites Distance Latency Amplitude Velocity Temp. cm ms mV m/s ??C R Median - APB Wrist 6 5.6 7.8 32.9 Elbow 26 10.7 8.2 51.1 32 R Ulnar - ADM Wrist 6 2.7 9.4 31.5 B.Elbow 24 7.3 8.4 52.8 31.5 A.Elbow 10 9.2 7.8 52.2 31.5 R Ulnar - FDI Wrist 4.0 6.7 21.3 B.Elbow 24 8.2 5.2 57.6 21.3 A.Elbow 10 10.2 5.5 50.0 21.3 EMG Summary Table Spontaneous MUAP Recruitment Muscle Fib/PSW Fasc Misc Dur Amp Polyphasic # MUs Rate Effort R. Deltoid None None None Normal Normal Normal Normal Normal Full R. Biceps None None None Normal Normal Normal Normal Normal Full R. Triceps None None None Normal Normal Normal Normal Normal Submax R. Pron Teres None None None Normal Normal Normal Normal Normal Submax R. First D Int None None None Normal Normal Normal Normal Normal Full documented in this encounter Plan of Treatment Upcoming Encounters Date Type Department Care Team (Late st Contact Info) Description 08/18/2025 10:15 AM EST Office Visit [facility] Department of Orthopaedic Surgery - [facility] [address] [address] Angel Alberts MD [address] [place] [address] [email or web address] documented as of this encounter Procedures Procedure Name Priority Date/Time Associated Diagnosis Comments EMG Routine 08/09/2025 11:00 AM EST S/P rotator cuff repair documented in this encounter Results * EMG (08/09/2025 11:00 AM EST) Anatomical Region Laterality Modality EMG Narrative 08/09/2025 11:00 AM EST Lizz Astudillo MD, PhD 08/09/2025 12:45 PM EMG Laboratory [facility] [address], [address] [place] [address] (phone) [phone] (fax) Patient: Azeem Crump Sex: Male Unit #: [id number] Date of : 1970 Visit Date: 08/09/2025 11:09 AM Patient Age On Visit Date: 54 Years Current Height: 5 feet 11 inch Reason for Study: Azeem Crump is a 54 yo man who reports numbness and tingling in right hand for almost a year now; following his right rotator cuff diagnosis. Exam reveals 4+ weakness of right APB muscle and reduced sensation of lateral aspect of the right ring finger. Tinel negative at right wrist. Phalen test positive on the right. Nerve conduction studies: 1. Sensory conduction studies of the right median nerve demonstrated prolonged peak latency and reduced amplitude. Right ulnar sensory response demonstrated reduced amplitude and borderline peak latency. The right mixed median palm response demonstrated prolonged peak latency in comparison with its ulnar counterpart being the difference in latency of 1.3 ms (normal is 0.4 ms or less). Right radial sensory response was normal. 2. Motor conduction studies of the right median nerve demonstrated prolonged distal motor latency, normal amplitudes, and normal conduction velocity. Right ulnar nerve recording from the abductor digiti minimi was normal. Right ulnar nerve recording from the first dorsal interosseus demonstrated borderline amplitudes, normal conduction velocities and normal distal motor latency. Needle Electromyography: Needle examination of selected muscles in the right upper extremity was carried out. There was no evidence of abnormal insertional or spontaneous activity in any muscles sampled. Motor unit potentials were of normal morphology and recruitment pattern throughout. Clinical correlation: This is an abnormal study. There is electrical evidence to suggest the presence of: Moderate, right-sided median neuropathy at wrist such may be seen in carpal tunnel syndrome. Mild, right-sided, non-localizing, sensory>motor ulnar neuropathy. There is no electrical evidence to suggest the presence of cervical radiculopathy on the right. All data has been reviewed by me and I agree with the impression above. I certify that I was present for the carpenter portion of the needle EMG procedure. Lizz Harvey MD, PhD Neuromuscular Neurologist Neuromuscular Division [facility] Sensory NCS Nerve / Sites Distance Peak Lat Amplitude Temp. cm ms V C R Median - Dig II Dig II 13 4.8 6.3 32.6 Palm 8 3.5 32.5 32.2 R Ulnar - Dig V Dig V 11 2.9 6.6 31.3 Palm 8 2.2 10.7 30.1 R Radial - Snuff box Forearm 10 2.5 27.5 32.7 Motor NCS Nerve / Sites Distance Latency Amplitude Velocity Temp. cm ms mV m/s C R Median - APB Wrist 6 5.6 7.8 32.9 Elbow 26 10.7 8.2 51.1 32 R Ulnar - ADM Wrist 6 2.7 9.4 31.5 B.Elbow 24 7.3 8.4 52.8 31.5 A.Elbow 10 9.2 7.8 52.2 31.5 R Ulnar - FDI Wrist 4.0 6.7 21.3 B.Elbow 24 8.2 5.2 57.6 21.3 A.Elbow 10 10.2 5.5 50.0 21.3 EMG Summary Table Spontaneous MUAP Recruitment Muscle Fib/PSW Fasc Misc Dur Amp Polyphasic # MUs Rate Effort R. Deltoid None None None Normal Normal Normal Normal Normal Full R. Biceps None None None Normal Normal Normal Normal Normal Full R. Triceps None None None Normal Normal Normal Normal Normal Submax R. Pron Teres None None None Normal Normal Normal Normal Normal Submax R. First D Int None None None Normal Normal Normal Normal Normal Full us Angel Alberts MD NEUROLOGY ORDERABLES Final Result documented in this encounter Visit Diagnoses Diagnosis S/P rotator cuff repair documented in this encounter Care Teams Advisor To Command In Combat Relationship Specialty Start Date End Date Pranay Grigsby MD [address] [place] [address] PCP - General Internal Medicine 11/17/24 documented as of this encounter Additional Source Comments The information contained in this document represents components of the legal health record. It is not the complete legal health record.[facility]
--- OUTSIDE RECORDS SUMMARY | 2025-08-10 14:23 | XMS_ITS | Encounter Summary ---
Author Organization [facility] Address [address] [place] [address] Phone Care Team Providers Care Transportation Planning Engineer Name Role Phone Jose David Schwarz MD Primary Care Provider + Pranay Grigsby MD Primary Care Provider +1- [phone] Encounter Details Date Type Department Care Team (Late st Contact Info) Description 07/16/2019 Procedure Pass [facility] General Imaging [address] [place] [address] Social History Tobacco Use Types Packs/Day Years [...] Description 08/18/2025 10:15 AM EST Office Visit [facility] Department of Orthopaedic Surgery - [address] [address] Angel Alberts MD [address] [place] [address] ANNABELLA@[email or web address] documented as of this encounter Visit Diagnoses Not on filedocumented in this encounter Care Teams Transportation Planning Engineer Relationship Specialty Start Date End Date Jose David Schwarz MD [address] [place] [address] PCP - General Internal Medicine 07/16/19 11/16/24 Pranay Grigsby MD [address] [place] [address] PCP - General Internal Medicine 11/17/24 documented as of this encounter Additional Source Comments The information contained in this document represents components of the legal health record. It is not the complete legal health record.[facility]
--- OUTSIDE RECORDS SUMMARY | 2025-08-10 14:23 | XMS_ITS | Encounter Summary ---
Author Organization [facility] Address [address] [place] [address] Phone Care Team Providers Care Clock Maker Name Role Phone Jose David Schwarz MD Primary Care Provider + Pranay Grigsby MD Primary Care Provider +1- [phone] Encounter Details Date Type Department Care Team (Late st Contact Info) Description 07/16/2019 Procedure Pass [facility] [address] [place] [address] Social History Tobacco Use Types Packs/Day Years [...] Description 08/18/2025 10:15 AM EST Office Visit [facility] Department of Orthopaedic Surgery - [address] [address] Angel Alberts MD [address] [place] [address] [email or web address] documented as of this encounter Visit Diagnoses Not on filedocumented in this encounter Care Teams Clock Maker Relationship Specialty Start Date End Date Jose David Schwarz MD [address] [place] [address] PCP - General Internal Medicine 07/16/19 11/16/24 Pranay Grigsby MD [address] [place] [address] PCP - General Internal Medicine 11/17/24 documented as of this encounter Additional Source Comments The information contained in this document represents components of the legal health record. It is not the complete legal health record.[facility]
--- OUTSIDE RECORDS SUMMARY | 2025-08-10 14:23 | XMS_ITS | Clinical Summary ---
Author Organization [facility] Address [address] [place] [address] Phone Care Team Providers Care Wash House Worker Name Role Phone Pranay Grigsby MD Primary Care Provider +1- [phone] Allergies No known active allergies Medications sertraline [...] Encounters Date Type Department Care Team Description 08/09/2025 11:00 AM EST - 08/09/2025 11:59 PM EST Hospital Encounter [facility] Dept of Neurology [address] [address] Angel Alberts MD Arrived Discharge Disposition: Home or Self Care 07/28/2025 10:00 AM EST Office Visit [facility] Department of Orthopaedic Surgery [facility] [address] [place] [address] Angel Alberts MD S/P rotator cuff repair (Primary Dx); Numbness and tingling in right hand; Cervical spondylosis 07/28/[address] [facility] of Orthopaedic Surgery [facility] [address] [place] [address] Angel Alberts MD S/P rotator cuff repair (Primary Dx) 06/02/2025 9:45 AM EDT Office Visit [facility] of Orthopaedic Surgery [facility] [address] [place] [address] Angel Alberts MD S/P rotator cuff repair [...] - - Weight 117.9 kg (260 lb) 07/28/2025 9:38 AM EST Height 180.3 cm (5' 11 ) 07/28/2025 9:38 AM EST Body Mass Index 36.26 07/28/2025 9:38 AM EST Plan of Treatment Upcoming Encounters Date Type Department Care Team (Late st Contact Info) Description 08/18/2025 10:15 AM EST Office Visit [facility] Department of Orthopaedic Surgery [place] [address] [place] [address] Angel Alberts MD [address] [place] [address] [address] [place] [address] ANNABELLA@[email or web address] Health Maintenance Due Date Last Done Comments BLOOD PRESSURE 1970 CREATININE LEVEL 1968 LIPID PANEL 1968 POTASSIUM LEVEL 1968 DEPRESSION SCREENING 1980 HEPATITIS C SCREENING 1986 HIV ONE-TIME SCREENING (18-6 5 YEARS) 1986 SCREENING FOR DIABETES 2003 COLOGUARD 2013 COLONOSCOPY 2013 COLORECTAL CANCER SCREENING 2013 FIT TEST 2013 FOBT 2013 SIGMOIDOSCOPY 2013 VIRTUAL COLONOSCOPY 2013 PNEUMOCOCCAL VACCINES (50+ y ears) (1 of 1 - PCV) 2018 ZOSTER VACCINES (1 of 2) 2018 INFLUENZA VACCINE (#1) 2025 07/16/2013 COVID-19 VACCINE (2 - 2024-2 6 season) 2025 10/29/2020 Adult Td,Tdap Booster 07/05/2035 07/05/2025 RSV VACCINE (1 - 1-dose 75+ series) 2043 SMOKING STATUS SCREENING (On ce After 26 Yrs) Completed 07/28/2025 HEPATITIS A VACCINES Aged Out No long [...] this topic Medical Devices Implanted Type Area Associate Director Of Biostatistics Device Identifier Shelf Expiration Date Model / Serial / Lot Horsham Soft Sp 2.6 Fibertak Triple Loaded W/1.3mm Suture Tape Wht/Aftab Blk/Wht Self-Punching Bx/5ea - [id number] Implanted:Qty: 1 on 04/26/2025 by Angel Alberts MD at [facility] Right: Shoulder [employer] [id number] 01/12/2029 AR-3633SP / / [id number] Horsham Soft Sp 2.6 Fibertak Triple Loaded W/1.3mm Suture Tape Wht/Aftab Blk/Wht Self-Punching Bx/5ea - [id number] Implanted:Qty: 1 on 04/26/2025 by Angel Alberts MD at [facility] Right: Shoulder [employer] [id number] 01/12/2029 AR-3633SP / / [id number] Horsham Soft Sp 2.6 Fibertak Triple Loaded W/1.3mm Suture Tape Wht/Aftab Blk/Wht Self-Punching Bx/5ea - [id number] Implanted:Qty: 1 on 04/26/2025 by Angel Alberts MD at [facility] Right: Shoulder [employer] [id number] 01/12/2029 AR-3633SP / / [id number] Horsham Swivelock 4.16vfw77.5mm W/1.3mm Suture Tape White/Blue Self Punching Bc Bx/5ea - [id number] Implanted:Qty: 1 on 04/26/2025 by Angel Alberts MD at [facility] Right: Shoulder [employer] [id number] 01/12/2029 AR-2324KB CSP / / [id number] Horsham Swivelock 4.48zsb18.5mm W/1.3mm Suture Tape White/Blue Self Punching Bc Bx/5ea - [id number] Implanted:Qty: 1 on 04/26/2025 by Angel Alberts MD at [facility] Right: Shoulder [employer] [id number] 12/13/2028 AR-2324KB CSP / / [id number] Horsham Swivelock 4.38vhr58.5mm W/1.3mm Suture Tape White/Blue Self Punching Bc Bx/5ea - [id number] Implanted:Qty: 1 on 04/26/2025 by Angel Alberts MD at [facility] Right: Shoulder [employer] [id number] 01/12/2029 AR-2324KB [facility] / / [id number] Procedures Procedure Name Priority Date/Time Associated Diagnosis Comments EMG Routine 08/09/2025 11:00 AM EST S/P rotator cuff repair from Last 3 Months Results * EMG (08/09/2025 11:00 AM EST) Anatomical Region Laterality Modality EMG Narrative 08/09/2025 11:00 AM EST Lizz Astudillo MD, PhD 08/09/2025 12:45 PM EMG Laboratory [facility] [address], [address] [place] [address] (phone) [phone] (fax) Patient: Azeem Crump Sex: Male Unit #: [id number] Date of : 1970 Visit Date: 08/09/2025 [...] Harvey MD, PhD Neuromuscular Neurologist Neuromuscular Division [facility] Sensory NCS Nerve / Sites Distance Peak [...] Angel Alberts MD NEUROLOGY ORDERABLES Final Result from Last [address] [place], [place] [address] [place], [place] [address] [place] [place] [address] [place] [place] [address] [place] [address] [place] [place] [address] [place] [address] [employer] Care Teams Wash House Worker Relationship Specialty Start Date End Date Pranay Grigsby MD [address] [place] [address] PCP - General Internal Medicine 11/17/24 Additional Source Comments The information contained in this document represents components of the legal health record. It is not the complete legal health record.[facility]
--- OUTSIDE RECORDS SUMMARY | 2025-08-10 14:23 | XMS_ITS | Encounter Summary ---
Author Organization [facility] Address [address] [facility] [address] [facility] [address] [place] [address] Phone Care Team Providers Care Ela Teacher Name Role Phone Pranay Grigsby MD Primary Care Provider +1- [phone] Encounter Details Date Type Department Care Team (Late st Contact Info) Description 04/26/2025 Procedure Pass [facility] [address] [place] [address] Social History Tobacco Use Types Packs/Day Years [...] Description 08/18/2025 10:15 AM EST Office Visit [facility] Department of Orthopaedic Surgery [address] [address] Angel Alberts MD [address] [place] [address] ANNABELLA@[email or web address] documented as of this encounter Visit Diagnoses Not on filedocumented in this encounter Care Teams Ela Teacher Relationship Specialty Start Date End Date Pranay Grigsby MD [address] [place] [address] PCP - General Internal Medicine 11/17/24 documented as of this encounter Additional Source Comments The information contained in this document represents components of the legal health record. It is not the complete legal health record.[facility]
--- OUTSIDE RECORDS SUMMARY | 2025-08-10 14:24 | XMS_ITS | Clinical Summary ---
Author Organization [employer] [facility] Address [address] [place] [address] Care Team Providers Care Glass Or Mirror Inspector Name Role Phone Kp Parkinson MD Primary [...] age to complete this topic Care Teams Glass Or Mirror Inspector Relationship Specialty Start Date End Date Kp Parkinson MD PCP - General Family Medicine 05/29/22
--- OUTSIDE RECORDS SUMMARY | 2025-08-10 14:24 | XMS_ITS | Encounter Summary ---
Author Organization [facility] Address [address] [facility] [address] [place] [address] Phone Care Team Providers Care Division Human Resources Manager Name Role Phone Jose David Schwarz MD Primary Care Provider + Pranay Grigsby MD Primary Care Provider +1- [phone] Encounter Details Date Type Department Care Team (Late st Contact Info) Description 07/16/2019 Procedure Pass [facility] General Imaging [address] [place] [address] Social History Tobacco Use Types Packs/Day Years [...] Description 08/18/2025 10:15 AM EST Office Visit [facility] Department of Orthopaedic Surgery - [address] [address] Angel Alberts MD [address] [place] [address] [email or web address] documented as of this encounter Visit Diagnoses Not on filedocumented in this encounter Care Teams Division Human Resources Manager Relationship Specialty Start Date End Date Jose David Schwarz MD [address] [place] [address] PCP - General Internal Medicine 07/16/19 11/16/24 Pranay Grigsby MD [address] [place] [address] PCP - General Internal Medicine 11/17/24 documented as of this encounter Additional Source Comments The information contained in this document represents components of the legal health record. It is not the complete legal health record.[facility]
--- OUTSIDE RECORDS SUMMARY | 2025-08-10 14:24 | XMS_ITS | Clinical Summary ---
Author Organization [facility] Address [address] [place] [address] Phone Care Team Providers Care Dozer Operator Name Role Phone Pranay Grigsby MD Primary Care Provider [phone] Allergies Active Allergy Reactions Criticality Noted Date [...] patient's age to complete this topic Insurance [facility] ALEX CABELLO [id number] [facility] Care Teams Dozer Operator Relationship Specialty Start Date End Date Pranay Grigsby MD [address] [place] [address] PCP - General Internal Medicine 10/16/24
== END 2025-08-10 11:29 | disposition home or self-care (01) ==
LOC: HO.HMGAL 11:27
PROVIDERS: PCP Internal Medicine; Visit Provider Registered Nurse Emergency
DX: J30.89 Other allergic rhinitis (principal)
CPT/HCPCS: 95117; 95165

== ENCOUNTER 2025-08-29 15:34 | Outpatient (AMB) | payer OTHER, SELFPAY ==
--- OUTSIDE RECORDS SUMMARY | 2025-08-29 21:59 | XMS_ITS | Clinical Summary ---
Author Organization [employer] Prior to 02/12/25 Address [address] [place] [address] Care Team Providers Care Auto Design Checker Name Role Phone Kp Parkinson MD Primary [...] age to complete this topic Care Teams Auto Design Checker Relationship Specialty Start Date End Date Kp Parkinson MD PCP - General Family Medicine 05/29/22
--- OUTSIDE RECORDS SUMMARY | 2025-08-29 21:59 | XMS_ITS | Data Portability ---
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 Name Role Phone MIKALA MATTHEWS Photocopier Technician TONYA VALDEZ Primary Care Provider [phone] TONYA VALDEZ Referring Provider Assessment Encounter Date [...] weeks of physician directed home exercise program caregivers homecare physical therapy ibuprofen gabapentin recommend facet injections for his pain relief she is symptoms persist we will consider medial branch blocks for evaluation radiofrequency ablation or consider an transforaminal injection for his lower extremity symptoms he will continue his home exercise program in the interim [email or web address] Not available 08/14/2023 12:57:17 Plan of Treatment Reminders Order Date Submit Date Provider Last Modified By Organization Details Last Modified Time Details Appointments None recorded. Lab None recorded. Referral None recorded. Procedures facet joint injection , lumbar (PROC) - Is Patient on any ABX/Anti- Coag/NSAI DS/Cardia c Risk Factors/P acemaker? [phone] [email or web address] [address] [facility], [address] , [address], [place], [address], 09:45:53 Surgeries None recorded. Imaging None recorded. [...] Organization Details Recorded Time [facility] 08/19/2023 10:29:14 Imaging Results None recorded. Procedure [...] Details Last Updated DateTime 08/12/2023 180.3 cm 772732.4 g Not Available Capsule 07/17 18:52:19 Social History Question Answer Notes LastModified by Organizat Backchat Details LastModified Time Tobacco Smoking Status Never Smoker Dana berger [facility] 08/19/2023 10:29:13 Do You Have An Advance Directive? No [email or web address] Information not available 08/19/2023 Is Blood Transfusion Acceptable In An Emergency? Yes [email or web address] Information not available 08/19/2023 Who Is Your Employer? [place] [employer] [email or web address] Information not available 08/19/2023 Have You Fallen In The Past Year? No [email or web address] Information no t available 08/19/2023 What Is Your Relationship Status? [email or web address] Information not available 08/19/2023 Sex: Unknown Functional Status Question Answer Note LastModified by Organizat ion Details LastModified Time Do you use any illicit or recreational drugs? No [email or web address] Information not available 08/19/2023 What is your level of alcohol consumption? Occasional [email or web address] Information not available 08/19/2023 Do you or have you ever used smokeless tobacco? Never used smokeless tobacco [email or web address] Information not available 08/19/2023 Are you currently employed? Yes [email or web address] Information not available 08/19/2023 Are you able to care for yourself independently? Yes [email or web address] Information not available 08/19/2023 What is your occupation? [employer] [email or web address] Information not available 08/19/2023 Do you or have you ever used e-cigarettes or vape? Never used electronic cigarettes [email or web address] Information not available 08/19/2023 What is your exercise level? Moderate [email or web address] Information not available 08/19/2023 Mental Status None recorded. Family History Nothing Reported. Medical History No medical history recorded. Past Encounters Encounter ID Performer Location Encounter Start Date Encounter Closed Date Diagnosis/Indication Diagnosis SNOMED-CT Code Diagnosis ICD10 Code Diagnosis IMO Codes Diagnosis Note [id number] KIKO LEBLANC MD [facility] [place] [address] [place] [id number] 08/12/2023 10:49:25 08/15/2023 09:36:57 Lumbar radiculopathy 079451944 M54.16 Arthropath y of lumbar facet joint 991699925 M47.816 Health Concerns Section Related Observation LastModified by Organization Detai ls LastModified Time None Recorded Concern Status LastModified by Organization Details LastModified Time None Recorded Advance Directives Directive N: Payers Insurance Date Sequence Insurance Name Policy Number Policy Bertrand Covered Member ID Bertrand Member ID Guarantor Name 07/31/2023 [facility] - WORKERS COMPENSATION [facility]- Azeem Theron Notes Date Note Type [...] [id number] KIKO LEBLANC MD [address], [place], [address], [facility] - [facility] [place] 08/14/2023 12:57:27
--- OUTSIDE RECORDS SUMMARY | 2025-08-29 21:59 | XMS_ITS | Clinical Summary ---
Author Organization [facility] Address [address] [place] [address] Phone Care Team Providers Care Electronic Organ Technician Name Role Phone Pranay Grigsby MD Primary Care Provider [phone] Allergies Active Allergy Reactions Criticality Noted Date [...] Orientation Straight 10/16/2024 4: 14 PM EST Last Filed Vital Signs Vital Sign Reading [...] Screening 08/24/2022 Depression Screening 09/15/2024 COVID-19 Vaccine (3 - season) 2025 10/29/2020, 09/29/2020 Influenza Vaccine (#1) [...] patient's age to complete this topic Insurance [address] [address] [facility] [place] [id number] [facility] Care Teams Electronic Organ Technician Relationship Specialty Start Date End Date Pranay Grigsby MD [address] [address] PCP - General Internal Medicine 10/16/24
== END 2025-08-29 15:34 | disposition home or self-care (01) ==
LOC: HO.HMGAL 15:34
PROVIDERS: PCP Internal Medicine; Visit Provider Registered Nurse Emergency
DX: J30.89 Other allergic rhinitis (principal)
CPT/HCPCS: 95117; 95165